=== PATIENT | female | born 1990 | race Caucasian/White ===

== ENCOUNTER → 2017-05-02 16:34 | Outpatient (CLI) | payer MEDICAID, SELFPAY ==
[2017-05-02 17:36] LABS: Glucose Challenge Gest 1H 50g 100 mg/dL (70-140)
[2017-05-02 17:38] LABS: Hematocrit 35.4 % (37-47); Hemoglobin 11.4 g/dl (12.0-15.0); Mean Corp Hgb Conc 32.2 g/gl (32-36); Mean Corpuscular Hgb 29.6 pg (27.0-32.0); Mean Corpuscular Volume 91.9 fL (81-99); Mean Platelet Vol. 9.8 fl (6.2-12.0); Platelet Count 237 K/mm3 (150-450); RBC Distribution Width CV 13.6 % (11.6-14.6); Red Blood Count 3.85 M/mm3 (4.2-5.4); White Blood Count 12.3 K/mm3 (4.4-11.0)
[2017-05-02 17:43] LABS: Scan Indicated on CBC? Y/N NO
== END ==
PROVIDERS: Visit Provider Obstetrics & Gynecology
DX: Z34.83 Encounter for supervision of other normal pregnancy, third trimester (principal)
CPT/HCPCS: 82950; 85027

== ENCOUNTER 2017-06-07 04:30 | Outpatient (CLI) | payer MEDICAID, SELFPAY ==
[2017-06-07 05:14] VITALS: BMI 29.3
[2017-06-07 05:28] LABS: ROM Internal Control Test YES-OK TO RESULT pt. (Internal QC); ROM Patient Test Negative (Negative)
[2017-06-07 05:55] VITALS: BP 116/69; PULSE 81; RESP 16; TEMP 37.3; O2SAT 94
--- NOTE | 2017-06-07 08:30 | OB.TRI.NOTE ---
History of Present Illness Date of Service: 06/07/17 Reason For Visit: R/O LABOR Date of Service: 06/07/17 Final EMRE: 07/17/17 Gestational age: 34 Weeks and 2 Days History of Present Illness: 27 yo female at 24 + wk EGA with h/o all term C section deliveries presents with ? SROM. Relates a small amt of vag dischg yesterday and again in night time. Advised to go in for SROM check, but advised by hx does not sound like SROM Home Medications Medication Instructions Recorded Vits [Prenatabs FA ] 1 tablet PO DAILY 04/26/14 Allergies meperidine HCl [From Demerol] Allergy (Severe, Verified 06/07/17 05:16) Itching latex Allergy (Verified 06/07/17 05:16) Rash swelling, itching strawberry Allergy (Verified 06/07/17 05:16) Rash Physical Exam Vitals: Vital Signs Temp Pulse Resp BP Pulse Ox 99.1 F 81 16 116/69 94 06/07/17 05:55 06/07/17 05:55 06/07/17 05:55 06/07/17 05:55 06/07/17 05:55 NST - FHR Rate Baby A Baseline: 130-140 with accels to 160-170s. Intial presentation p smoking Variability:: Moderate Accelerations:: 15 x 15 Decelerations:: None, Early NST Reactive:: Yes, Appropriate for gestational age FHR Category:: Category I - Presented after smoking on way to hospital. Initial FHT in 170-180s then to reactive NST Uterine Activity:: No UCs noted. Impression/Plan 34 2/7 wk ? SROM FALSE LABOR SROM NEG Reactive NST. Home. Keep next ofc appt as scheduled.
== END 2017-06-07 05:55 | disposition home or self-care (01) ==
LOC: WPOUT 04:55 → WP 04:55
PROVIDERS: Visit Provider Obstetrics & Gynecology
DX: O47.03 False labor before 37 completed weeks of gestation, third trimester (principal); O34.219 Maternal care for unspecified type scar from previous cesarean delivery; O99.333 Smoking (tobacco) complicating pregnancy, third trimester; F17.200 Nicotine dependence, unspecified, uncomplicated; Z3A.34 34 weeks gestation of pregnancy
CPT/HCPCS: 59025; 59050; 84112; 99218; G0378

== ENCOUNTER 2017-07-08 23:35 | Emergency (ER) | payer MEDICAID, SELFPAY ==
[2017-07-08 23:35] VITALS: BP 104/47; PULSE 55; RESP 18; TEMP 37.1; O2SAT 98; BMI 27.3
--- NOTE | 2017-07-08 23:41 | ED.RN ---
PT SENT IN BY DR ARRINGTON FOR IV FLUID HYDRATION. PT STATES SHE IS HAVING LOWER ABD PAIN AND PRESSURE THAT RADIATES TO HIPS. PT STATES DR WAS AWARE AND STATES JUST TO COME TO ER FOR FLUIDS DONT BOTHER GOING TO OB I CALLED DOWN TO [facility] AND SPOKE WITH CHARGE NURSE, TOLD NURSE ABOUT THIS PATIENT AND CONCERNS FOR LOWER ABD PAIN. [facility] STATES TO GIVE PATIENT FLUIDS DIRECTED BY DOCTOR AND SEND TO [facility] IF PAIN PERSISTS AFTER FLUIDS. DR. FELIPE AND DR BAUER AWARE.
--- NOTE | 2017-07-09 00:15 | ED.DCSUM_ITS ---
- ER Visit Summary Date of Service: 07/09/17 Chief Complaint: Nausea vomiting diarrhea, abdominal cramping History of Present Illness: The patient is a 27 F 38 weeks and 4 days presents to the ED after being told by labor and delivery to be checked into the ED. Started having nausea vomiting 6 PM this evening. Total 4 episodes, no hematemesis. 2 episodes of loose stools. No melena. Mild lower abdominal cramping. States noting cramping lower abdomen every 5 minutes prior to arrival. There is no leakage of fluid. No vaginal bleeding. She is followed by Dr. Fernandez. States is a scheduled in 2 days. Tobacco history. Patient currently denies any nausea symptoms. Physical Examination: General: Alert and oriented ?3, no acute distress HEENT: Normocephalic, atraumatic. Moist mucosa membranes Neck: supple, nontender. Cardiovascular: Regular rate and rhythm, no murmurs Respiratory: Normal breath sounds, symmetric, no distress Abdomen: Soft, gravid, mild tenderness lower abdomen. No guarding or rebound Extremities: Nontender, no edema, pulses intact ?4 Neuro: no focal neurological deficits. Test Results: [] Emergency Department Course and Treatment: Patient had IV established by nursing. Fluid started. Vitals stable. With patient's complaint of cramping every 5 minutes, will talk to OB absorption plant operator for discharge to OB unit. 0030: Callback from Dr. Leonidas Dao. Keep IV in, discharged to labor and delivery. Blood work tubes are in the lab for hold in case she needs it. Treatment Plan: [] Disposition: Discharge to labor and delivery Impression: 1. Nausea, vomiting, diarrhea 2. Likely contractions This note was generated with [employer] dictation software. It may contain incorrect words, spelling, and punctuation that were not noted in review of the chart prior to signing ED Disposition - Plan for ED Patient: Disposition: Home or Assisted Living Chief Complaint: Nausea/Vomiting Diagnosis: Vomiting and diarrhea, Labor Contraction Referrals: Care Physician,No Primary [Primary Care Provider] - Additional Instructions: go to labor and delivery.
[2017-07-09] MEDS: 0.9% Normal Saline 1,000 ML 150 ML IV (00:24)
--- NOTE | 2017-07-09 00:48 | ED.RN ---
PT D/C FROM ED AND ESCORTED TO OB VIA WHEELCHAIR AT THIS TIME PER NEW ORDER FROM DR YA.
[2017-07-09 00:50] VITALS: BP 104/47; PULSE 55; RESP 18; O2SAT 98
== END 2017-07-09 00:51 | disposition home or self-care (01) ==
PROVIDERS: Emergency Provider Emergency Medicine
DX: O99.89 Other specified diseases and conditions complicating pregnancy, childbirth and the puerperium (principal); R11.2 Nausea with vomiting, unspecified; R19.7 Diarrhea, unspecified; R10.30 Lower abdominal pain, unspecified; O99.333 Smoking (tobacco) complicating pregnancy, third trimester; F17.200 Nicotine dependence, unspecified, uncomplicated; Z3A.38 38 weeks gestation of pregnancy
CPT/HCPCS: 99281

== ENCOUNTER 2017-07-09 00:42 | Outpatient (CLI) | payer MEDICAID, SELFPAY ==
[2017-07-09 01:10] VITALS: BMI 27.4
[2017-07-09 03:17] LABS: Red Blood Cells-Urine 0 SEEN /hpf (0-5)
[2017-07-09 03:22] LABS: Color, Urine Yellow (Yellow); Glucose, Dipstick Normal (Normal); Leukocyte Esterase-Dipstick 500 /ul (Negative); Nitrite-Dipstick Negative (Negative); Occult Blood-Urine 10 /ul (Negative); Protein-Dipstick 30 mg/dl (Negative); Urine Clarity Sl. Cloudy (Clear); Urine Urobilinogen 1 mg/dl (Normal)
[2017-07-09 03:23] LABS: Ketone-Dipstick 150 mg/dl (Negative); Urine Bilirubin Dipstick 1 mg/dL (Negative)
[2017-07-09 03:27] LABS: Absolute Lymphocyte Count 0.91 X10^3/ul (0.83-4.51); Absolute Neutrophil Count 21.3 X10^3/uL (2.0-7.7); Basophil# 0.04 X10^3/uL; Basophil% 0.2 % (0-1); Eosinophils% 0.4 % (0-5); Hematocrit 39.5 % (37-47); Hemoglobin 13.2 g/dl (12.0-15.0); Lymphocyte # 0.91 X10^3/ul (4.0); Lymphocyte % 3.9 % (19-41); Mean Corp Hgb Conc 33.4 g/gl (32-36); Mean Corpuscular Hgb 30.9 pg (27.0-32.0); Mean Corpuscular Volume 92.5 fL (81-99); Mean Platelet Vol. 11.1 fl (6.2-12.0); Monocyte# 1.05 X10^3/uL; Monocyte% 4.5 % (0-10); Neutrophil # 21.29 X10^3/uL (2.7-7.7); Neutrophil % 90.6 % (47-70); Platelet Count 297 K/mm3 (150-450); RBC Distribution Width CV 14.1 % (11.6-14.6); RBC Distribution Width SD 46.4 fl (35.1-43.9); Red Blood Count 4.27 M/mm3 (4.2-5.4); White Blood Count 23.5 K/mm3 (4.4-11.0)
[2017-07-09 03:29] LABS: Mucous, Urine 1+ /hpf (<or=2+); Squamous Epithelial Cells - UA 5-10 SEEN /hpf (5-10); White Blood Cells 10-25 SEEN /hpf (0-5)
[2017-07-09 03:30] LABS: Bacteria RARE /hpf (None Seen)
[2017-07-09 03:33] LABS: Differential Indicated SCAN CRITERIA MET; POSITIVE COUNT NO; POSITIVE DIFFERENTIAL YES; POSITIVE MORPHOLOGY NO
[2017-07-09 03:39] LABS: ALB/GLOB Ratio 0.8 RATIO (0.9-2.4); AST(SGOT) 16 U/L (15-37); Alanine Aminotransfer ALT/SGPT 16 U/L (13-56); Alkaline Phosphatase 212 U/L (45-117); Anion Gap 13 (5-15); BUN 7 mg/dL (7-18); BUN/Creat Ratio 12.9 RATIO (10-20); Calcium,Total 8.5 mg/dL (8.5-10.1); Chloride 106 mmol/L (98-107); Creatinine, Serum 0.54 mg/dL (0.55-1.02); EST Glomerular Filtration Rate 142 mL/min (>60); Est Glom Filt Rate - Afr Amer 171 mL/min (>60); Glucose 79 mg/dL (74-106); Potassium 3.5 mmol/L (3.5-5.1); Sodium Level 140 mmol/L (136-145)
--- NOTE | 2017-07-09 03:55 | OB.TRI.NOTE ---
History of Present Illness Date of Service: 07/09/17 Was patient seen by the physician?: Yes Reason For Visit: R/O LABOR Final EMRE: 07/17/17 Final EMRE Source: US <20 weeks Gestational age: 39 Weeks and 3 Days History of Present Illness: 27yo @ 38 6/7wga presents with c/o abdominal pain, nausea, vomiting and diarrhea - sent from ED. She began feeling unwell at 6pm yesterday and subsequently had emesis x 2 and diarrhea x 3 - denies hematochezia. Diarrhea was loose and watery. Denies fever, chills, back pain, urinary urgency, dysuria. No sick contacts. She was brought in to ER by her . Denies worsening of abdominal pain with ride. Pain is intermittent and c/w contraction pain. +FM, no leaking of fluid or vaginal bleeding. She is scheduled for a repeat C/S tomorrow. Home Medications Medication Instructions Recorded Vits [Prenatabs FA ] 1 tablet PO DAILY 04/26/14 Docusate Sodium [Colace] 100 mg PO BID PRN #30 cap 07/10/17 Naproxen [Naprosyn] 250 - 500 mg PO TID PRN #30 tab 07/10/17 Oxycodone [Oxyir] 5 - 10 mg PO Q6H PRN PRN 7 Days 07/10/17 #28 tablet Allergies meperidine HCl [From Demerol] Allergy (Severe, Verified 07/09/17 01:11) Itching latex Allergy (Verified 07/09/17 01:11) Rash swelling, itching strawberry Allergy (Verified 07/09/17 01:11) Rash - Pertinent Past Medical History Pertinent Past Medical History: Past Medical History: Denies Past Surgical History: section x 3 - in 2007, 2009 and 2014 Dilation and curettage for SAB LEEP Cervical fusion Social History: , smokes 5 cigarettes a day, denies alcohol or illicit drug use Physical Exam Vitals: avss General: Alert, Oriented x3, Cooperative, No apparent distress Cardiovascular: Regular rate, Regular Rhythm, Normal S1, Normal S2 Lungs: Clear to auscultation, Normal air movement, No rhonchi, No wheeze, No rales Abdomen: Soft, Non-Distended, Gravid, - - Abdomen tender, no rebound or guarding - no fundal tenderness; NO CVA tenderness Extremities:: No edema Estimated gestational size: Appropriate for gestational size Presentation: Cephalic Cervix Dilation (cm): 1 Station: -3 Effacement (%): 50 NST - FHR Rate Baby A Baseline: 140 Variability:: Moderate Accelerations:: 15 x 15 Decelerations:: None NST Reactive:: Yes FHR Category:: Category I Uterine Activity:: 2/10 Impression/Plan Labs reviewed, significant for leukocytosis and suggest infection - Dx gastroenteritis -Will observe overnight and hydrate further -Repeat abdominal exam to monitor tenderness -No evidence of active labor
[2017-07-09] MEDS: Dextrose 5%/0.9% NaCl 1,000 ML 200 ML IV (04:27)
--- NOTE | 2017-07-09 10:47 | PCM.PN.BLA ---
Progress Note Entry for 07/09/17 at approximately 0830h Patient relates abdominal pain resolved. Has two additional episodes of loose stool, but no further vomiting. AVSS, abdomen is soft, nontender. FHR Cat I and contractions resolved. Will d/c home. PO hydration advised. Like has 24 hour infection. Reviewed si/sx of worsening. Return for scheduled section tomorrow if sx resolved.
== END 2017-07-09 08:50 | disposition home or self-care (01) ==
LOC: WPOUT 01:06 → WP 01:06
PROVIDERS: Visit Provider Obstetrics & Gynecology
DX: O99.89 Other specified diseases and conditions complicating pregnancy, childbirth and the puerperium (principal); R10.9 Unspecified abdominal pain; R11.2 Nausea with vomiting, unspecified; R19.7 Diarrhea, unspecified; O99.333 Smoking (tobacco) complicating pregnancy, third trimester; F17.200 Nicotine dependence, unspecified, uncomplicated; Z3A.38 38 weeks gestation of pregnancy
CPT/HCPCS: 59025; 59050; 80053; 81001; 85025; 87086; 87088; 99218; G0378

== ENCOUNTER 2017-07-10 05:30 | Inpatient (IN) | payer MEDICAID, SELFPAY ==
[2017-07-04 09:46] VITALS: BMI 27.8
[2017-07-10] VITALS (25 sets, daily range): BP systolic 77–136; BP diastolic 46–74; PULSE 71–101; RESP 12–18; TEMP 36.1–37.3; O2SAT 95–100; BMI 27.3
[2017-07-10] MEDS: Lactated Ringers 1,000 ML 999 ML IV (06:15)
[2017-07-10 06:39] LABS: Absolute Lymphocyte Count 1.93 X10^3/ul (0.83-4.51); Absolute Neutrophil Count 8.2 X10^3/uL (2.0-7.7); Basophil# 0.01 X10^3/uL; Basophil% 0.1 % (0-1); Eosinophil# 0.18 X10^3/uL; Eosinophils% 1.5 % (0-5); Hematocrit 35.8 % (37-47); Hemoglobin 11.6 g/dl (12.0-15.0); Lymphocyte # 1.93 X10^3/ul (4.0); Lymphocyte % 16.4 % (19-41); Mean Corp Hgb Conc 32.4 g/gl (32-36); Mean Corpuscular Hgb 30.1 pg (27.0-32.0); Mean Corpuscular Volume 92.7 fL (81-99); Mean Platelet Vol. 10.5 fl (6.2-12.0); Monocyte# 1.35 X10^3/uL; Monocyte% 11.5 % (0-10); Neutrophil # 8.22 X10^3/uL (2.7-7.7); Platelet Count 287 K/mm3 (150-450); RBC Distribution Width CV 14.5 % (11.6-14.6); RBC Distribution Width SD 48.5 fl (35.1-43.9); Red Blood Count 3.86 M/mm3 (4.2-5.4); White Blood Count 11.8 K/mm3 (4.4-11.0)
[2017-07-10 06:43] LABS: International Normalized Ratio 1.1; Prothrombin Time (Protime)PT. 13.9 SECONDS (11.7-14.9)
[2017-07-10 06:44] LABS: Partial Thromboplast Time 30.4 Seconds (24.1-36.2)
[2017-07-10 07:01] LABS: POSITIVE COUNT NO; POSITIVE DIFFERENTIAL NO; POSITIVE MORPHOLOGY NO
[2017-07-10] MEDS: Sodium Citrate/Citric Acid 30 ML UDC PO (07:08)
[2017-07-10] MEDS: Lactated Ringers 1,000 ML 150 ML IV (07:09)
--- NOTE | 2017-07-10 07:15 | PCM.DCCSEC ---
Discharge Diet: No Restrictions Discharge Activity: May not drive while taking narcotic pain medications., May Shower, May Take a Tub Bath May resume sexual activity in: 4-6 weeks Lifting Restrictions: 20 pounds Additional Activity Instructions:: Nothing in the vagina for 4-6 weeks. You may return to work/school in 6 weeks. Change Dressing in (Days):: 4 Remove Dressing in (days):: 4 Cleanse incision/area with: Soap & Water, Keep Dressing Clean & Dry Additional Instructions: If you experience any of the following, contact your healthcare provider. Bleeding that soaks a pad every hour for 2 hours Fever 100.4 or higher Unrelieved incision or abdominal pain Swelling, redness, discharge or bleeding from your incision Problems urinating (including inability to urinate or burning while urinating). Visual changes Severe headache Flu-like symptoms Pain or redness in one of both of your breasts Pain, warmth, tenderness or swelling in your legs, especially the calf area Frequent nausea and vomiting Symptoms of depression or anxiety If you experience any of the following, call 911 or go to the nearest Emergency Room. Chest pain Problems breathing Seizure activity Partial or complete paralysis of a body part, slurred speech, weakness or drooping of the face, or a sudden inability to walk or hold your balance Allergies/Adverse Reactions: Allergies meperidine HCl [From Demerol] Allergy (Severe, Verified 07/09/17 01:11) Itching latex Allergy (Verified 07/09/17 01:11) Rash swelling, itching strawberry Allergy (Verified 07/09/17 01:11) Rash Medications to take at Discharge Vits [Prenatabs FA ] 1 tablet PO DAILY 04/26/14 Docusate Sodium [Colace] 100 mg PO BID PRN #30 cap 07/10/17 Naproxen [Naprosyn] 250 - 500 mg PO TID PRN #30 tab 07/10/17 Oxycodone [Oxyir] 5 - 10 mg PO Q6H PRN PRN 7 Days #28 tablet 07/10/17 The following prescriptions were given: Oxycodone [Oxyir] 5 - 10 mg PO Q6H PRN PRN 7 Days #28 tablet PRN Reason: Mod-Severe Pain () Docusate Sodium [Colace] 100 mg PO BID PRN #30 cap PRN Reason: Constipation Naproxen [Naprosyn] 250 - 500 mg PO TID PRN #30 tab PRN Reason: Mild-Mod Pain (-08/10) Follow-Up: Call to make an appointment with your doctor for an incision check in 1-2 weeks. You will also need a 6 week post- follow up appointment. Please Follow Up With: Lissette Fernandez MD - [phone] When: Call to make an appointment for an incision check in 2 weeks. Primary Care Physician: Care Physician,No Primary [Primary Care Provider] -
--- NOTE | 2017-07-10 07:19 | DCINST_ITS ---
Discharge Diet: No Restrictions Discharge Activity: May not drive while taking narcotic pain medications., May Shower, May Take a Tub Bath May resume sexual activity in: 4-6 weeks Lifting Restrictions: 20 pounds Additional Activity Instructions:: Nothing in the vagina for 4-6 weeks. You may return to work/school in 6 weeks. Change Dressing in (Days):: 4 Remove Dressing in (days):: 4 Cleanse incision/area with: Soap & Water, Keep Dressing Clean & Dry Additional Instructions: If you experience any of the following, contact your healthcare provider. * Bleeding that soaks a pad every hour for 2 hours * Fever 100.4 or higher * Unrelieved incision or abdominal pain * Swelling, redness, discharge or bleeding from your incision * Problems urinating (including inability to urinate or burning while urinating) . * Visual changes * Severe headache * Flu-like symptoms * Pain or redness in one of both of your breasts * Pain, warmth, tenderness or swelling in your legs, especially the calf area * Frequent nausea and vomiting * Symptoms of depression or anxiety If you experience any of the following, call 911 or go to the nearest Emergency Room. * Chest pain * Problems breathing * Seizure activity * Partial or complete paralysis of a body part, slurred speech, weakness or drooping of the face, or a sudden inability to walk or hold your balance Allergies/Adverse Reactions: Allergies meperidine HCl [From Demerol] Allergy (Severe, Verified 07/09/17 01:11) Itching latex Allergy (Verified 07/09/17 01:11) Rash swelling, itching strawberry Allergy (Verified 07/09/17 01:11) Rash Medications to take at Discharge Vits [Prenatabs FA ] 1 tablet PO DAILY 04/26/14 Docusate Sodium [Colace] 100 mg PO BID PRN #30 cap 07/10/17 Naproxen [Naprosyn] 250 - 500 mg PO TID PRN #30 tab 07/10/17 Oxycodone [Oxyir] 5 - 10 mg PO Q6H PRN PRN 7 Days #28 tablet 07/10/17 The following prescriptions were given: Oxycodone [Oxyir] 5 - 10 mg PO Q6H PRN PRN 7 Days #28 tablet PRN Reason: Mod-Severe Pain (-01/10) Docusate Sodium [Colace] 100 mg PO BID PRN #30 cap PRN Reason: Constipation Naproxen [Naprosyn] 250 - 500 mg PO TID PRN #30 tab PRN Reason: Mild-Mod Pain (-08/10) Follow-Up: Call to make an appointment with your doctor for an incision check in 1-2 weeks. You will also need a 6 week post- follow up appointment. Please Follow Up With: Lissette Fernandez MD - [phone] When: Call to make an appointment for an incision check in 2 weeks. Primary Care Physician: Care Physician,No Primary [Primary Care Provider] -
[2017-07-10] MEDS: Cefazolin 2 GM in 0.9% Normal Saline 100 ML IV (07:38)
[2017-07-10] MEDS: Oxytocin 30 units/NS 500 ml 30 UNITS/500 ML IV.SOLN 167 UNITS IV (07:47)
[2017-07-10] MEDS: Lactated Ringers 1,000 ML 100 ML IV ×2 (08:30→10:55)
--- NOTE | 2017-07-10 08:49 | OP.PCM_ITS ---
Operative Report Date of Procedure: 07/10/17 PROCEDURE: Repeat C section. Bilateral partial salpingectomy Preoperative diagnosis: 39 wk EGA Prior C section, planned repeat C section Sterilization request. Postop diagnosis: 39 wk EGA Prior C section, planned repeat C section Sterilization request. Anesthesia: Spinal, Marleni Wisdom MD Surgeon: Lissette Fernandez MD Spring Upholsterer: SANDY Francis EBL 600 cc Complications: none Drains: Wu draining clear yellow urine Fluids: replacement LR Findings: At amniotomy, clear fluid was noted. Grande viable female in vertex presentation. Apgars 9/9, Baby weight: 7# 9 oz There was a normal appearing uterus, fallopian tubes and ovaries bilaterally. There were filmy adhesions between the bladder and lower uterine segment. There was a very thin window at the lower uterine segment to the right side of the uterus. PATH: Routine cord blood for typing collected. Bilateral fallopian tube segments. Narrative account: After the risks, benefits and alternatives of the procedure were reviewed with the patient, informed consent was obtained. The patient was taken to the Operating room with an IV running, and placed in a seated position on the operating table for placement of the spinal. Once the spinal had been administered, she was briefly frog-legged for Wu catheter placement, and then repositioned to dorsal supine position with leftward displacement of the uterus, and prepped and draped in the usual sterile fashion. Once the spinal was deemed adequate, a Pfannenstiel skin incision was created using the knife ( through the prior skin incision scar). The incision was carried down to the rectus fascia using the knife. The fascia was nicked in the midline. The fascial incision was extended bilaterally using curved Huber scissors. The superior aspect of the fascial incision was grasped with Vickie clamps and tented up and the underlying rectus abdominal muscles were dissected free using blunt and sharp dissection and Bovie cautery (dense adhesions at this layer). In a similar manner, the inferior aspect of the facial incision was grasped with Vickie clamps tented up and the underlying rectus abdominal muscles were dissected free. The rectus abdominis muscles were tented up in the midline and a Huber scissors was used to enter the peritoneum by sharp dissection. The rectus abdominis muscles were then in the midline using Huber scissors . The peritoneum was stretched laterally and a bladder blade was inserted. A bladder flap was created along the lower uterine segment with Metzenbaum scissors . A window was noted at the prior uterine incision to the right side of the incision. The uterine incision was then created using Metzenbaum scissors. The operators fingertips were used to extend the uterine incision by blunt dissection in a caudad- cephalad orientation . Clear fluid was noted at amniotomy. The vertex was then delivered atraumatically through the incision. The OP and nares were bulb suctioned on the abdomen. The shoulders delivered easily . The cord clamped x two and cut. And the was handed off to the nurse awaiting delivery after briefly showing her to her parents. The baby had a spontaneous, vigorous cry. The placenta was then delivered. The uterus was exteriorized and cleared of clots and debris . The uterine incision was repaired with 1 Vicryl in a running locked fashion. Excellent hemostasis was noted. The R fallopian tube was grasped at the distal fibrated end ...the fallopian tube was otherwise adherent to the ovary. The fimbriated end was doubly ligated with 2-0 catgut and then excised with Huber scissors and the stump was Bovie cauterized for hemostasis. The R fimbriated end was set aside for later pathology review. The L fallopian tube was then tented up with Morrison clamp and a relatively avascular segment was selected for the bilateral partial salpingectomy. A defect was created in the mesosalpinx using Bovie cautery. The proximal and distal ends of the fallopian tube at the mesosalpinx window were then free tied with 2-0 Catgut. A knuckle of the tube was then tied off inferior to the ties. A segment of the L fallopian tube was then excised using Metzenbaum scissors. The tubal segment was set aside for later pathology review. Bovie cautery was used for hemostasis at the remaining stumps. Excellent hemostasis was noted at both tubal segments. At this point the uterus, fallopian tubes and ovaries were returned to the abdominal cavity. The gutters were cleared of clots and debris and the uterine incision inspected. Excellent hemostasis was noted. The peritoneal edges and rectus abdominis muscles were reapproximated in the midline using vertical mattress stitches and figure of eight stitches of 1 Vicryl . Excellent hemostasis was noted at the subfascial space The fascia was closed in a running nonlocked fashion with running nonlocked 1 Vicryl. The Subcutaneous fatty tissue was Bovie cauterized as needed for hemostasis. This layer was then reapproximated with a single layer of running 3-0 Vicryl to eliminate space. The skin edges were closed in a Subcuticular stitch of 4-0 Vicryl. The incision was cleansed. Cavilon, Steristrips, and a Mepilex dressing were applied to the skin . The patient was then transferred to the recovery room bed in stable condition after tolerating the procedure well. Sponge, lap, needle and instrument counts correct times two. Medications given preop and intraoperatively included: Ancef 2 gm given managed services sales consultant to the operating room. The patient also received Pitocin given IV after cord clamp, and Toradol 30 mg IV times one. For a complete listing of medications given preop and intraoperatively, please see the anesthesia record.
--- NOTE | 2017-07-10 09:24 | FALS_PTH ---
PATIENT: MARCELL BABCOCK LOC: [facility] U#:[id number] AGE/SX: 27/F ROOM: [facility]006 RE07/10/[address]: Dr. Lissette Fernandez MD : 1990 BED: 1 DIS: 07/12/2017 SPEC #: [id number] RECD: 07/10/17 09:36 STATUS: DESTINEE DOMENIAC #: [id number] ANETTE: 07/10/17 09:[address]: Lissette Fernandez DEPT: SURGICAL PATHOLOGY RECD BY: Mal Fan ENTERED: 07/10/17 09:36 SP TYPE: FALL TUBES OTHR DR: No Primary Care Phys Tissues: Fallopian tube Procedures: Surgery Specimen Level II HEADER OPERATION: Tubal ligation PRE-OP DIAGNOSIS: Tubal ligation TISSUE SUBMITTED: Fallopian tube MICROSCOPIC DIAGNOSIS Right fallopian tube, salpingectomy: Complete segment of fallopian tube with no pathologic change. Left fallopian tube, salpingectomy: Complete segment of fallopian tube with no pathologic change. AM:sherie 07/11/17 MICROSCOPIC DESCRIPTION Slides are reviewed. GROSS DESCRIPTION Received in fixative is one container labeled with the patient's name and designated right with tube. The specimen consists of two tubular pieces of nieto soft tissue. The right tube is identified by a suture. The right tube measures 3 cm in length and 1 cm in diameter. The fimbrial end is identified. The left tube measures 2 cm in length and 0.5 cm in diameter. The entire specimen is submitted in two cassettes as follows: 1 - right tube, 2 - left tube. Both pieces will be sectioned at the time of embedding. / CHARLI:sherie 07/10/17 TC:5 CPT: 71278 x2
[2017-07-10] MEDS: Ketorolac 30 MG/ML Syringe IV ×2 (12:58→18:26)
[2017-07-10] MEDS: DiphenhydrAMINE 25 MG Capsule PO ×2 (16:48→23:32)
[2017-07-10] MEDS: 0.9% Saline Lock 10 ML Syringe IV (19:36)
[2017-07-10] MEDS: Acetaminophen 500 MG Tablet 1000 MG PO (19:43)
[2017-07-11] VITALS (7 sets, daily range): BP systolic 95–117; BP diastolic 46–62; PULSE 65–88; RESP 12–18; TEMP 36.6–37.1; O2SAT 96–100
[2017-07-11] MEDS: 0.9% Saline Lock 10 ML Syringe IV (00:53)
--- NOTE | 2017-07-11 01:01 | NURSING ---
0100 dose of IV toradol not given. IV site infiltrated with saline flush. RN discussed restarting IV for scheduled toradol. pt declined and wants to start PO pain medications.
[2017-07-11] MEDS: Naproxen 250 MG Tablet PO ×3 (01:10→23:56)
[2017-07-11] MEDS: oxyCODONE 5 MG Tablet PO ×4 (04:19→20:13)
[2017-07-11 05:04] LABS: Hematocrit 32.3 % (37-47); Hemoglobin 10.6 g/dl (12.0-15.0); Mean Corp Hgb Conc 32.8 g/gl (32-36); Mean Corpuscular Hgb 30.2 pg (27.0-32.0); Mean Platelet Vol. 10.5 fl (6.2-12.0); Platelet Count 248 K/mm3 (150-450); RBC Distribution Width CV 14.2 % (11.6-14.6); RBC Distribution Width SD 47.5 fl (35.1-43.9); Red Blood Count 3.51 M/mm3 (4.2-5.4); White Blood Count 21.9 K/mm3 (4.4-11.0)
[2017-07-11 05:05] LABS: Scan Indicated on CBC? Y/N NO
[2017-07-11] MEDS: Acetaminophen 500 MG Tablet 1000 MG PO ×2 (05:40→22:39)
--- NOTE | 2017-07-11 07:40 | PCM.PN.OB ---
Subjective: POD#1 Repeat C/S and BPS Doing well. no concerns voiced. Mentions some cramping with nursing and also passed a clot earlier this am. No heavy bleeding otherwise. Pain control adequate. IV S/L removed in middle of night as infiltrated, would not flush. Denies any URI. has dry cough and very thirsty. Nursing ok. - Physical Exam General: Oriented x3, Cooperative - resting, rouses to voice. HEENT: Atraumatic, PERRLA Neck: Supple Abdomen: Soft - softly distended and tympanitic. Fundus firm and minimally tender c/w postop status at 1-2 cm inferior to umbilicus Skin: Incision - Mepilex intact, with two small spots of old shadow outlined in ink w/o extension. Psych/Mental Status: Normal Affect Vital Signs Temp Pulse Resp BP Pulse Ox 98.8 F 84 16 104/46 L 98 07/11/17 04:06 07/11/17 04:36 07/11/17 04:36 07/11/17 04:06 07/11/17 04:36 Oxygen Delivery Method Room Air Weight: 69.853 kg Body Mass Index (BMI) 27.3 Intake and Output for Last 24 Hours 07/09/17 07/10/17 07/11/17 23:59 23:59 23:59 Intake Total 7124 / 7124 1000 / 1000 Output Total 3250 / 3250 3150 / 3150 Balance 3874 / 3874 -2150 / -2150 Laboratory Tests Past 24 Hrs 07/10/17 07/10/17 07/10/17 06:18 08:08 08:13 WBC RBC Hgb Hct MCV MCH MCHC RDW RDW Differential Plt Count MPV Specimen Type Cancelled Cancelled Sample Site Cancelled Cancelled O2 % Cancelled Cancelled Cord ABG pH Cancelled Cord ABG pCO2 Cancelled Cord ABG pO2 Cancelled Cord ABG HCO3 Cancelled Cord ABG Total CO2 Cancelled Cord ABG Base Excess Cancelled Cord ABG O2 Sat Cancelled Cord VBG pH Cancelled Cord VBG pCO2 Cancelled Cord VBG pO2 Cancelled Cord VBG Base Excess Cancelled Respiration Rate Cancelled Cancelled O2 Delivery Device Cancelled Cancelled Liter Flow Cancelled Minute Volume Cancelled Vent Mode Cancelled Tidal Volume Cancelled POC PEEP Cancelled Cancelled POC Pressure Suppt Cancelled Cancelled Pressure High Cancelled Cancelled Pressure Low Cancelled Cancelled Time High Cancelled Cancelled Time Low Cancelled Cancelled EPAP Cancelled Cancelled IPAP Cancelled Cancelled Blood Gas Notified Whom Cancelled Cancelled Blood Gas Notified Time Cancelled Cancelled Blood Type A POSITIVE Antibody Screen NEGATIVE 07/11/17 04:36 WBC 21.9 H RBC 3.51 L Hgb 10.6 L Hct 32.3 L MCV 92.0 MCH 30.2 MCHC 32.8 RDW 14.2 RDW Differential 47.5 H Plt Count 248 MPV 10.5 Specimen Type Sample Site O2 % Cord ABG pH Cord ABG pCO2 Cord ABG pO2 Cord ABG HCO3 Cord ABG Total CO2 Cord ABG Base Excess Cord ABG O2 Sat Cord VBG pH Cord VBG pCO2 Cord VBG pO2 Cord VBG Base Excess Respiration Rate O2 Delivery Device Liter Flow Minute Volume Vent Mode Tidal Volume POC PEEP POC Pressure Suppt Pressure High Pressure Low Time High Time Low EPAP IPAP Blood Gas Notified Whom Blood Gas Notified Time Blood Type Antibody Screen Medical Necessity - Tobacco Use Smoking Status: Current every day smoker Assessment/Plan POD#1 Repeat C/S and BPS Stable postop PO meds initiated. Inc diet and activity as tolerated. Wu out and voiding well. Leukocytosis. Pt remains afeb. Suspect reactive , but will watch temps . Repeat CBC on POD#2 Continue care.
--- NOTE | 2017-07-11 16:00 | NURSING ---
Reviewed and agreed with Student RN charting.
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
[2017-07-11] MEDS: Senna/Docusate Sodium 1 Tablet PO (16:22)
[2017-07-12] MEDS: oxyCODONE 5 MG Tablet PO (02:02)
[2017-07-12 02:45] VITALS: BP 110/61; PULSE 66; RESP 18; TEMP 36.6; O2SAT 95
--- NOTE | 2017-07-12 06:46 | NURSING ---
This RN agrees with all Andreas SN charting
[2017-07-12 06:50] LABS: Hematocrit 31.2 % (37-47); Hemoglobin 10.3 g/dl (12.0-15.0); Mean Corpuscular Hgb 30.6 pg (27.0-32.0); Mean Corpuscular Volume 92.6 fL (81-99); Mean Platelet Vol. 10.2 fl (6.2-12.0); Platelet Count 282 K/mm3 (150-450); RBC Distribution Width CV 14.4 % (11.6-14.6); RBC Distribution Width SD 48.4 fl (35.1-43.9); Red Blood Count 3.37 M/mm3 (4.2-5.4); White Blood Count 14.9 K/mm3 (4.4-11.0)
[2017-07-12 06:51] LABS: Scan Indicated on CBC? Y/N NO
[2017-07-12 07:17] VITALS: BP 93/61; PULSE 74; RESP 16; TEMP 36.2; O2SAT 95
--- NOTE | 2017-07-12 07:33 | PCM.PN.OB ---
Subjective: POD#2 Repeat C/S and BPS Doing well and would like to go home later today. No concerns voiced. Pain control adequate. + flatus. tolerating diet well. Objective: Lying in bed for nursing assessment. - Physical Exam General: Alert, Oriented x3, Cooperative, No apparent distress HEENT: Atraumatic Neck: Supple Abdomen: Soft - Less distended and tympanitic today. Skin: Incision - Mepilex CDI. MInimal spots of marked old dischg, each under 1 cm. Neurological: Cranial nerves II-XII grossly intact Psych/Mental Status: Normal Affect Vital Signs Temp Pulse Resp BP Pulse Ox 97.2 F L 74 16 93/61 95 /02/18 07:17 07/12/17 07:17 07/12/17 07:17 07/12/17 07:17 07/12/17 07:17 Oxygen Delivery Method Room Air Weight: 69.853 kg Body Mass Index (BMI) 27.3 Intake and Output for Last 24 Hours 04//18 18 07/12/17 23:59 23:59 23:59 Intake Total 7124 / 7124 1000 / 1000 Output Total 3250 / 3250 3150 / 3150 Balance 3874 / 3874 -2150 / -2150 Laboratory Tests Past 24 Hrs //18 06:05 WBC 14.9 H RBC 3.37 L Hgb 10.3 L Hct 31.2 L MCV 92.6 MCH 30.6 MCHC 33.0 RDW 14.4 RDW Differential 48.4 H Plt Count 282 MPV 10.2 Medical Necessity - Tobacco Use Smoking Status: Current every day smoker Assessment/Plan POD#2 Repeat C/S and BPS Stable postop Leukocytosis. resolving. Dischg home today. RTO in 2 wk for postop incision check as planned. reviewed removal of bandage by 3-4 d postop.
--- NOTE | 2017-07-12 07:37 | PCM.DC.SUM ---
Discharge Date and Diagnosis Date of Admission: 07/10/17 - 39 wk EGA. repeat C/S and BPS Date of Discharge: 07/12/17 - same - Secondary Discharge Diagnosis Chronic Problems (Last Reviewed 07/09/17 @ 08:33 by Susana Bob MD) Palpitations (Chronic) Dizziness (Chronic) Pectus excavatum (Chronic) Hospital Course and Treatment Operations: - - repeat C/S and BPS Summary of Care Provided: The patient is a 27 year old female at 39 wk EGA with h/o prior C/S deliveries, presented for repeat C/S and BPS. Procedure performed 07/10/17, uncomplicated. Grande viable female with Ap 8/9 7# 9 oz. Normal uterus, ovaries B. R fallopian tube with adhesions to ovary but fimbria free and excised along with midportion of L fallopian tube. reactive leukocytosis noted on CBC POD#1 which is resolving by POD#2 Pt request: dischg to home on POD#2 Routine dischg instructions given and f/u planned in 2 wk in ofc. Discharge Diet: No Restrictions Discharge Activity: May not drive while taking narcotic pain medications., May Shower, May Take a Tub Bath May resume sexual activity in: 4-6 weeks Additional Activity Instructions:: Nothing in the vagina for 4-6 weeks. You may return to work/school in 6 weeks. Change Dressing in (Days):: 4 Remove Dressing in (days):: 4 Cleanse incision/area with: Soap & Water, Keep Dressing Clean & Dry Home Medications: Medications to take at Discharge Vits [Prenatabs FA ] 1 tablet PO DAILY 04/26/14 Docusate Sodium [Colace] 100 mg PO BID PRN #30 cap 07/10/17 Naproxen [Naprosyn] 250 - 500 mg PO TID PRN #30 tab 07/10/17 Oxycodone [Oxyir] 5 - 10 mg PO Q6H PRN PRN 7 Days #28 tablet 07/10/17 Following Prescrptions Were Given to Patient: Oxycodone [Oxyir] 5 - 10 mg PO Q6H PRN PRN 7 Days #28 tablet PRN Reason: Mod-Severe Pain (4-10/10) Docusate Sodium [Colace] 100 mg PO BID PRN #30 cap PRN Reason: Constipation Naproxen [Naprosyn] 250 - 500 mg PO TID PRN #30 tab PRN Reason: Mild-Mod Pain (1-5) Other Amb Orders: Electric breast pump Time Frame: 1 Year, Location: None Selected Primary Care Physician: Care Physician,No Primary [Primary Care Provider] - Please Follow Up With: Lissette Fernandez MD - [phone] When: Call to make an appointment for an incision check in 2 weeks. Medical Necessity - Tobacco Use Smoking Status: Current every day smoker Meaningful Use Info Meaningful Use Diagnoses (Choose all that apply): None applicable
--- NOTE | 2017-07-12 07:41 | DS.PCM_ITS ---
Discharge Date and Diagnosis Date of Admission: 07/10/17 - 39 wk EGA. repeat C/S and BPS Date of Discharge: 07/12/17 - same - Secondary Discharge Diagnosis Chronic Problems (Last Reviewed 07/09/17 @ 08:33 by Susana Bob MD) Palpitations (Chronic) Dizziness (Chronic) Pectus excavatum (Chronic) Hospital Course and Treatment Operations: - - repeat C/S and BPS Summary of Care Provided: The patient is a 27 year old female at 39 wk EGA with h/o prior C/S deliveries , presented for repeat C/S and BPS. Procedure performed 07/10/17, uncomplicated. Grande viable female with Ap 8/9 7# 9 oz. Normal uterus, ovaries B. R fallopian tube with adhesions to ovary but fimbria free and excised along with midportion of L fallopian tube. reactive leukocytosis noted on CBC POD#1 which is resolving by POD#2 Pt request: dischg to home on POD#2 Routine dischg instructions given and f/ u planned in 2 wk in ofc. Discharge Diet: No Restrictions Discharge Activity: May not drive while taking narcotic pain medications., May Shower, May Take a Tub Bath May resume sexual activity in: 4-6 weeks Additional Activity Instructions:: Nothing in the vagina for 4-6 weeks. You may return to work/school in 6 weeks. Change Dressing in (Days):: 4 Remove Dressing in (days):: 4 Cleanse incision/area with: Soap & Water, Keep Dressing Clean & Dry Home Medications: Medications to take at Discharge Vits [Prenatabs FA ] 1 tablet PO DAILY 04/26/14 Docusate Sodium [Colace] 100 mg PO BID PRN #30 cap 07/10/17 Naproxen [Naprosyn] 250 - 500 mg PO TID PRN #30 tab 07/10/17 Oxycodone [Oxyir] 5 - 10 mg PO Q6H PRN PRN 7 Days #28 tablet 07/10/17 Following Prescrptions Were Given to Patient: Oxycodone [Oxyir] 5 - 10 mg PO Q6H PRN PRN 7 Days #28 tablet PRN Reason: Mod-Severe Pain (4-10/10) Docusate Sodium [Colace] 100 mg PO BID PRN #30 cap PRN Reason: Constipation Naproxen [Naprosyn] 250 - 500 mg PO TID PRN #30 tab PRN Reason: Mild-Mod Pain (1-5) Other Amb Orders: Electric breast pump Time Frame: 1 Year, Location: None Selected Primary Care Physician: Care Physician,No Primary [Primary Care Provider] - Please Follow Up With: Lissette Fernandez MD - [phone] When: Call to make an appointment for an incision check in 2 weeks. Medical Necessity - Tobacco Use Smoking Status: Current every day smoker Meaningful Use Info Meaningful Use Diagnoses (Choose all that apply): None applicable
[2017-07-12] MEDS: Naproxen 250 MG Tablet PO (08:06)
[2017-07-12 10:16] LABS: Pathology Specimen OB SEE PATHOLOGY REPORT
[2017-07-12] MEDS: Senna/Docusate Sodium 1 Tablet PO (10:18)
[2017-07-12] MEDS: Acetaminophen 500 MG Tablet 1000 MG PO (10:18)
[2017-07-12 11:40] VITALS: BP 129/83; PULSE 84; RESP 18; TEMP 36.3; O2SAT 97
[2017-07-12 15:51] LABS: Pathology Specimen OB SEE PATHOLOGY REPORT
== END 2017-07-12 11:40 | disposition home or self-care (01) | DRG 371 ==
PROVIDERS: Admitting Provider Obstetrics & Gynecology; Visit Provider Obstetrics & Gynecology
DX: O34.211 Maternal care for low transverse scar from previous cesarean delivery (principal); Z37.0 Single live birth; Z30.2 Encounter for sterilization; O99.334 Smoking (tobacco) complicating childbirth; F17.210 Nicotine dependence, cigarettes, uncomplicated; Z3A.39 39 weeks gestation of pregnancy; D72.829 Elevated white blood cell count, unspecified; O99.12 Other diseases of the blood and blood-forming organs and certain disorders involving the immune mechanism complicating childbirth; Q67.6 Pectus excavatum; O99.89 Other specified diseases and conditions complicating pregnancy, childbirth and the puerperium; R11.2 Nausea with vomiting, unspecified; R19.7 Diarrhea, unspecified; R10.30 Lower abdominal pain, unspecified
CPT/HCPCS: 59025; 59050; 80053; 81001; 85025; 85027; 85610; 85730; 86850; 86900; 87086; 87088; 88302; 94762; 99218; 99281; J7120; A4216; G0378; J2405

== ENCOUNTER → 2018-01-30 14:28 | Outpatient (CLI) | payer MEDICAID, SELFPAY ==
[2018-01-30 15:45] LABS: Hematocrit 42.1 % (37-47); Hemoglobin 13.8 g/dl (12.0-15.0); Mean Corp Hgb Conc 32.8 g/gl (32-36); Mean Corpuscular Hgb 30.6 pg (27.0-32.0); Mean Corpuscular Volume 93.3 fL (81-99); Mean Platelet Vol. 9.6 fl (6.2-12.0); Platelet Count 336 K/mm3 (150-450); RBC Distribution Width CV 13.9 % (11.6-14.6); RBC Distribution Width SD 46.5 fl (35.1-43.9); Red Blood Count 4.51 M/mm3 (4.2-5.4); White Blood Count 8.2 K/mm3 (4.4-11.0)
[2018-01-30 15:46] LABS: Scan Indicated on CBC? Y/N NO
[2018-01-30 16:06] LABS: hCG Titer Quant., Serum < 1 mIU/mL (<9 non-preg)
[2018-01-30 18:47] LABS: Chlamydia Trachomatis by PCR Negative (Negative); Neisserai gonorrhoeae by PCR Negative (Negative); Probe Check PASS; Sample Adequacy Control PASS; Specimen Processing Control PASS
[2018-01-30 20:27] LABS: Thyroid Stim Hormone (TSH) 0.42 uIU/mL (0.358-3.74)
== END ==
PROVIDERS: Visit Provider Obstetrics & Gynecology
DX: N92.6 Irregular menstruation, unspecified (principal)
CPT/HCPCS: 36415; 84443; 84702; 85027; 87491; 87591

== ENCOUNTER 2018-06-05 01:15 | Emergency (ER) | payer SELFPAY ==
[2018-06-05 01:18] VITALS: BP 112/61; PULSE 72; RESP 15; TEMP 37.1; O2SAT 97; BMI 22.6
--- NOTE | 2018-06-05 01:40 | ED.VIS.GEN ---
History of Present Illness Chief Complaint: Complaint Detail of Chief Complaint: hematuria Informant: Patient Onset: Hours - several Context: Sudden Onset Timing: Continuous Quality: bloody urine w/ clots Location: urethral Current Severity: Moderate Maximum Severity: Moderate Worsened by: urinating Relieved by: nothing Associated Symptoms: dysuria, frequency, urgency Narrative: Feels like she still needs to urinate, but so far has been able to urinate although she is having blood clots. No abdominal discomfort, back discomfort, nausea, vomiting, fevers. Has had urinary tract infections in the past but not for a long time. No allergies to any antibiotics that she knows of. Past Medical History - Allergies and Home Meds Allergies/Adverse Reactions: Allergies meperidine HCl [From Demerol] Allergy (Severe, Verified 06/05/18 01:16) Itching latex Allergy (Verified 06/05/18 01:16) Rash swelling, itching strawberry Allergy (Verified 06/05/18 01:16) Rash Primary Care Physician: Care Physician,No Primary [Primary Care Provider] - Past Medical History: None Surgical History: - - D&C Lives: Spouse/ Significant Other Smoking Status: Current every day smoker Review of Systems General: Denies: Chills, Fever Gastrointestinal: Denies: Abdominal pain, Nausea, Vomiting Genitourinary: Reports: Dysuria, Hematuria, Frequency Musculoskeletal: Denies: Back pain Physical Exam Vital Signs/Narrative: Vital Signs Temp Pulse Resp BP Pulse Ox 06/05/18 01:18 98.8 F 72 15 112/61 97 Inital Vital Signs reviewed: Yes General: Well nourished, Well developed, No Acute Distress Head: Normocephalic, Atraumatic Abdomen: Soft, Nontender, Nondistended, Normal bowel sounds Back: Nontender, Normal Inspection. Negative for: CVA tenderness Skin: Normal color, No rash Neurological: Alert, Oriented x3, Cranial nerves II-XII grossly intact, Normal Strength, Normal Sensation Psychological: Normal affect, Normal Mood Diagnostic/Tx/Re-eval Laboratory Results 06/05/18 06/05/18 01:40 01:40 Urine Color Red Urine Clarity Turbid Urine pH 6.5 Ur Specific [place] 1.020 Urine Protein 500 H Urine Glucose (UA) Normal Urine Ketones 5 H Urine Occult Blood 250 H Urine Nitrite Negative Urine Bilirubin Negative Urine Urobilinogen 1 H Ur Leukocyte Esterase 500 H Urine RBC > 100 SEEN Urine WBC 50-100 SEEN Ur Squamous Epith Cells 0 SEEN Urine Bacteria 2+ Urine Mucus 0 SEEN Urine Test Negative - Medical Decision Making Urinalysis is grossly bloody and consistent with infection. I think it is reasonable to treat her as an uncomplicated hemorrhagic cystitis, culture not likely to be necessary. We will place her on Bactrim. We did a bedside bladder scan, it was basically 0, reassuring that she is not retaining at this time. Discussed reasons to return to the ER. ED Disposition - Plan for ED Patient: Disposition: Home or Assisted Living Diagnosis: Hemorrhagic cystitis Instructions: ED UTI Cystitis Female Prescriptions: Sulfamethoxazole/Trimethoprim [Bactrim Ds Tablet] 1 each PO BID #10 tablet Referrals: Dyana Reis [NON-STAFF] - 3-5 Days if not improving
[2018-06-05 01:48] LABS: Mucous, Urine 0 SEEN /hpf (<or=2+); Squamous Epithelial Cells - UA 0 SEEN /hpf (5-10)
[2018-06-05 01:57] LABS: Color, Urine Red (Yellow); Glucose, Dipstick Normal (Normal); Ketone-Dipstick 5 mg/dl (Negative); Leukocyte Esterase-Dipstick 500 /ul (Negative); Nitrite-Dipstick Negative (Negative); Occult Blood-Urine 250 /ul (Negative); Protein-Dipstick 500 mg/dl (Negative); Urine Bilirubin Dipstick Negative (Negative); Urine Clarity Turbid (Clear); Urine Urobilinogen 1 mg/dl (Normal); Urine pH 6.5 (5.0 - 8.0)
[2018-06-05 01:59] LABS: Red Blood Cells-Urine > 100 SEEN /hpf (0-5); White Blood Cells 50-100 SEEN /hpf (0-5)
[2018-06-05 02:00] LABS: Bacteria 2+ /hpf (None Seen)
[2018-06-05 02:02] LABS: Internal QC Validated? YES +Cl - CLEAR BKGD; Pregnancy, Urine Negative Negative
[2018-06-05] MEDS: Smz/Tmp Ds Tablet 1 TABLET PO (02:20)
[2018-06-05 02:25] VITALS: BP 110/60; PULSE 71; RESP 18; O2SAT 96
== END 2018-06-05 02:25 | disposition home or self-care (01) ==
PROVIDERS: Emergency Provider Emergency Medicine
DX: N30.91 Cystitis, unspecified with hematuria (principal); F17.200 Nicotine dependence, unspecified, uncomplicated; Z87.440 Personal history of urinary (tract) infections
CPT/HCPCS: 81001; 81025; 99283

== ENCOUNTER → 2018-11-09 09:29 | Outpatient (CLI) | payer MEDICAID, SELFPAY ==
--- NOTE | 2018-11-09 09:38 | RAD_ITS ---
STUDY: AIR-CONTRAST UPPER GI SERIES AND SMALL BOWEL FOLLOW-THROUGH EXAMINATION. REASON FOR EXAM: Female, 28 years old. Abdominal cramping with nausea and diarrhea. Weight loss. FLUOROSCOPY TIME (if supplied): (1:48) minutes/seconds. 16 images were obtained. TECHNIQUE: The patient ingested barium. Multiple images of the esophagus, stomach and duodenum were obtained. Following this, a small bowel follow-through examination was performed. COMPARISON: None. FINDINGS: The esophagus is unremarkable. There is no evidence of esophageal obstruction. No mass lesion is seen. No evidence of gastroesophageal reflux. The stomach and duodenum are unremarkable. There is no evidence of ulceration. No mass lesion is present. A small bowel follow-through examination was then obtained. The small bowel transit is normal. There is no evidence of intrinsic or extrinsic small bowel disease. RAD/Upper GI/w Small Bowel IMPRESSION: Unremarkable air-contrast upper GI series and small bowel follow-through examination. Electronically Signed: Don Martinez, at 9:33 EDT , Service support ,
== END ==
PROVIDERS: Referring Provider Nurse Practitioner Family; Visit Provider Nurse Practitioner Family
DX: R10.9 Unspecified abdominal pain (principal); R63.4 Abnormal weight loss
CPT/HCPCS: 74249

== ENCOUNTER → 2020-07-14 08:42 | Outpatient (CLI) | payer MEDICAID, SELFPAY ==
--- NOTE | 2020-07-14 08:45 | BI_ITS ---
MAMMOGRAPHY - BILATERAL DIAGNOSTIC REASON FOR EXAM: Female, 30 years old. Bilateral breast pain. History of prior right nipple discharge. PERTINENT HISTORY: Non-contributory. TECHNIQUE: Digital bilateral breast harry (3D mammographic acquisition) in the CC and MLO projections. 2-D mediolateral oblique (MLO) and craniocaudad (CC) views of both breasts were obtained. CAD: Full Field Digital Mammography with Computer Added Detection was performed. COMPARISON: None. Baseline examination. FINDINGS: Breast Composition: The breasts are extremely dense, which lowers the sensitivity of mammography. There are no dominant masses or suspicious calcifications. No other significant abnormalities are identified. BI/DIAG MAMM W/CAD, BILAT IMPRESSION: Negative diagnostic mammogram. With the patient''s history of breast pain, correlation with ultrasound is recommended. ASSESSMENT CATEGORY: BIRADS Category 0: Incomplete. Need additional imaging evaluation. A letter regarding these results will be sent to the patient by the facility within 30 days. Approximately 10% of breast cancers are not detected by mammography. A normal mammogram should not delay biopsy of a clinically suspicious abnormality. Electronically Signed: Don Martinez MD at 10:02 EDT , Service support ,
--- NOTE | 2020-07-14 08:45 | US_ITS ---
STUDY: ULTRASOUND BREAST - RIGHT REASON FOR EXAM: Female, 30 years old. Pain in the upper outer quadrant of the right breast. Pea-sized palpable lump in the axillary region of the breast. History of breast discharge. TECHNIQUE: Axial and longitudinal images of the RIGHT breast were performed with a high resolution ultrasound transducer. # OF IMAGES: 75 COMPARISON: Comparison is made with prior mammogram done earlier in the day. FINDINGS: RIGHT Breast: The upper outer quadrant of the right breast as well as the retroareolar region of the right breast was examined by ultrasound. Small lymph nodes are seen in the axillary region of the right breast. The larger measures 1.4 cm x 0.8 cm x 0.4 cm. US/Breast Limited Unilateral IMPRESSION: There are 2 small lymph nodes in the right axilla. ASSESSMENT CATEGORY: BIRADS Category 2: Benign. A letter regarding these results will be sent to the patient by the facility within 30 days. Electronically Signed: Don Martinez MD at 15:29 EDT , Service support ,
== END ==
PROVIDERS: Referring Provider Student in an Organized Health Care Education/Training Program; Visit Provider Student in an Organized Health Care Education/Training Program
DX: N64.4 Mastodynia (principal)
CPT/HCPCS: 76642; 77062; 77066; G0279

== ENCOUNTER → 2020-08-04 16:26 | Outpatient (CLI) | payer MEDICAID, SELFPAY ==
[2020-07-17 10:07] VITALS: BMI 21.9
[2020-08-04 18:46] LABS: Estradiol 78.8 pg/mL; Follicle Stimulating Hormone 8.4 mIU/mL; Luteinizing Hormone 27.2 mIU/mL; Prolactin 7.6 ng/mL; T4 Free Direct 1.09 ng/dL (0.76-1.46); Thyroid Stim Hormone (TSH) 0.69 uIU/mL (0.358-3.74)
[2020-08-10 16:57] LABS: HPV APTIMA, High Risk Negative (Negative)
== END ==
PROVIDERS: Visit Provider Student in an Organized Health Care Education/Training Program
DX: N92.6 Irregular menstruation, unspecified (principal); Z12.4 Encounter for screening for malignant neoplasm of cervix
CPT/HCPCS: 36415; 82670; 83001; 83002; 84146; 84439; 84443; 87624; 88175; G0145

== ENCOUNTER 2020-09-25 07:53 | Day surgery (SDC) | payer MEDICAID, SELFPAY ==
[2020-07-17 10:07] VITALS: BMI 21.9
[2020-09-24 17:25] LABS: Hematocrit 40.8 % (37-47); Hemoglobin 13.2 g/dL (12.0-15.0); Mean Corp Hgb Conc 32.4 g/dL (32-36); Mean Corpuscular Hgb 30.5 pg (27.0-32.0); Mean Corpuscular Volume 94.2 fL (81-99); Mean Platelet Vol. 9.7 fl (6.2-12.0); Platelet Count 286 K/mm3 (150-450); RBC Distribution Width SD 45.2 fl (35.1-43.9); Red Blood Count 4.33 M/mm3 (4.2-5.4); White Blood Count 7.8 K/mm3 (4.4-11.0)
--- NOTE | 2020-09-24 18:23 | PCM.HP.BLA ---
History and Physical Date of Admission: 09/25/20 HISTORY OF PRESENT ILLNESS: On 09/24/2020, Lupe Campbell, a 30 year old female 4 0 1 0 4, presented for: hysteroscopy dilation and curettage, alexandra ablation for heavy irregular menses. MEDICAL HISTORY: 1. Abnormal uterine bleeding 2. Asthma ALLERGIES: Latex, Rash, itching, strawberries, Rash, Demoral, Itching all over, Demerol, Itching, non-specific, Latex, Rash, [place] and Rash MEDICATIONS HISTORY: 1. albuterol sulfate 0.63 mg/3 mL solution for nebulization, as directed SURGICAL HISTORY: 1. 07/10/2017 and Tubal Lissette Fernandez M.D. 2. 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 10/15/07 Primary C/S for Distress Dr Fernandez/Dr Juárez 4. 02/14/2010 Repeat C/S Dr. Moni Juárez labor, 38 wks. 5. 01/21/2014 LEEP Lissette Fernandez M.D. 6. 07/09/2013 suction D Lissette Fernandez M.D. 7. 11/06/2014 Lissette Fernandez M.D. MENSTRUAL HISTORY: LMP Known?- DefiniteAmount/Duration - 7-14 days, Regularity - bleeds between periods, LMP - 09/17/20, Age Onset Menarche - 12 PAST PREGNANCIES: Total Pregnancies - 5; Full Term Pregnancies - 4; Premature - 0; Abortions, Induced - 0; Abortions, Spontaneous - 1; Ectopics - 0; Multiple Births - 0; Living Children - 4 FAMILY HISTORY: Father - Ischemic heart disease; Mother - Ischemic heart disease; MaternalGrandparent - FH: Cancer of colon; MaternalGrandparent - FH: Cancer; SOCIAL HISTORY: Alcohol Use - RARELY Smoking - 1/2 PPD, ATQ! Drugs - denies REVIEW OF SYSTEMS: GENERAL - Denies fever, or chills SKIN - Denies skin changes EYES - Denies visual changes EARS - Denies difficulty hearing NOSE - Denies nasal congestion or bleeding MOUTH - Denies sore throat or difficulty swallowing NECK - Denies pain or swelling RESPIRATORY - Denies shortness of breath or wheezing CARDIOVASCULAR - Denies palpitations or chest pain GASTROINTESTINAL - Denies nausea, vomiting, diarrhea, constipation GENITOURINARY - Irregular bleeding MUSCULOSKELETAL - Denies joint or muscle pain NEUROLOGICAL - Denies localized numbness or weakness PSYCHIATRIC - Denies depression or anxiety ENDOCRINE - Denies heat or cold intolerance, weight loss or gain HEMATO-IMMUNOLOGIC - Denies excesive bleeding with cuts BP- 104/60 Sitting, Right arm, regular cuff Weight- 120.00 lbs Height- 63.00 inch BMI:21.30 CONSTITUTIONAL - NAD, well nourished, and well developed SKIN - No rash, lesions, or ulcers HEENT - Normocephalic, PERRLA, EOMI NECK - No nodes, no nuchal rigidity and thyroid normal size and texture LYMPH NODES - Palpation of lymph nodes in neck and groins within normal limits LUNGS - CTA x2 without wheezes, crackles or rales CARDIAC - Regular rate and rhythm without rubs, murmurs, or gallops ABDOMEN - Without hepatosplenomegaly, distention, masses, rebound, or guarding; normal bowel sounds; no hernias EXTREMITIES - No edema or calf tenderness NEUROLOGICAL - Cranial nerves II-XII grossly intact PSYCHIATRIC - A and O to time, place, person, mood and affect ASSESSMENT: PLAN BY DIAGNOSIS: 1. Excessive And Frequent Menstruation With Regular Cycle Heavy menses for 2 weeks at a time about every 2 weeks. Planned for hysteroscopy, dilation and curettage, alexandra ablation. Risks/benefits/alternatives discussed. Risks include, but are not limited to: risk of bleeding to the point of transfusion, infection, injury to surrounding tissue (bowel/bladder),uterrine perforation, VTE, ICU admission. Pt aware, consent signed.
[2020-09-25] VITALS (10 sets, daily range): BP systolic 102–121; BP diastolic 62–83; PULSE 62–79; RESP 16–24; TEMP 36.1–36.6; O2SAT 93–99; BMI 21.7
[2020-09-25] MEDS: Lactated Ringers 1,000 ML 100 ML IV (08:38)
--- NOTE | 2020-09-25 09:25 | EMB_PTH ---
PATIENT: MARCELL BABCOCK LOC: [facility] [place] U#:[id number] AGE/SX: 30/F ROOM: RE09/25/[address]: Dr. Brisa Cheng, : 1990 BED: DIS: 09/25/2020 SPEC #: [id number] RECD: 09/25/20 10:35 STATUS: DESTINEE DOMENICA #: [id number] ANETTE: 09/25/20 09:[address]: Brisa Cheng DEPT: SURGICAL PATHOLOGY RECD BY: Barbi Claros ENTERED: 09/25/20 11:02 SP TYPE: ENDOM BX/C HARJINDER DR: No Primary Care Phys Tissues: Endometrium, NOS Procedures: Surgery Specimen Level IV HEADER OPERATION: Hysteroscopy, D & C Crystal PRE-OP DIAGNOSIS: Excessive and frequent menstruation with regular cycle TISSUE SUBMITTED: Endometrial curettings MICROSCOPIC DIAGNOSIS Endometrium, curettings: Mildly disordered proliferative endometrium with focal glandular breakdown. AM:sherie 09/28/2020 MICROSCOPIC DESCRIPTION Slides are reviewed. GROSS DESCRIPTION Received in fixative is one container labeled with the patient's name and designated endometrial curettings. The specimen consists of multiple irregular fragments of nieto-pink soft tissue that in aggregate measure 3 x 2 x 0.2 cm. The specimen is totally submitted in one cassette. / SJ:sherie 09/25/20 TC:5 CPT: 17891
--- NOTE | 2020-09-25 09:26 | OP.PCM_ITS ---
Report of Operation Date of Procedure: 09/25/20 Pre-Operative Diagnosis: Abnormal uterine bleeding, menorrhagia Post-Operative Diagnosis: Abnormal uterine bleeding, menorrhagia Surgery/Procedure Performed:: Hysteroscopy, dilation and curettage, Crystal ablation Description of Surgical Findings:: Normal-appearing external genitalia. Moderate uterine descensus. Uterine cavity measuring 4.5 cm. Endometrial cavity with fluffy tissue, no polyps or fibroids. Type of Anesthesia: MAC Specimen's removed: Endometrial curettings Estimated Blood Loss (mL): 5 cc Fluids Replaced: 600 cc Description of Procedure: Indications, risk/benefits: 30-year-old female with abnormal uterine bleeding and menorrhagia plan for hysteroscopy, dilation and curettage, endometrial ablation. All risk, benefits, alternatives were discussed with the patient. Risks include but are not limited to: Risk of bleed ing twin transfusion, infection, injury to surrounding tissue including bowel or bladder or uterine perforation, VTE, ICU admission patient were consented. Procedure: Patient taken to the operating room MAC anesthesia induced. Patient placed in the dorsal lithotomy position and prepped and draped in the usual sterile fashion. Bladder drained 10 cc clear urine. Weighted speculum placed in poste rior vagina and Dobson retractor used to visualize the cervix which was grasped with single-tooth tenaculum. Cervix sequentially dilated. Hysteroscope placed through the cervix and visualization of the entire endometrial cavity was completed with findings as above. Uterine cavity length measuring 4.5 cm. Hysteroscope removed. Curettage completed in a 360 degree manner. Crystal device opened and deployed. Passed cavity assessments. Ablation completed. Cavity reassessed with adequate ablation noted. No ablation of cervix. Tenaculum removed with some cervical tearing and bleeding noticed. Repaired with 1 [id number] stitch, hemostatic. Retractors removed. At the end of the procedure all needle, lap, sponge counts were correct x3. Complications None
--- NOTE | 2020-09-25 09:26 | PCM.DC ---
Discharge Instructions Diet Discharge Diet: No restrictions Activity Discharge Activity: Return to Normal Activity May resume sexual activity in: 1-2 weeks Lifting Restrictions: None Dressing / Incision Call your doctor if you observe: Fever of 101 or Higher, Using more than 1 pad per hour, Shortness of breath, Dizziness, Swelling in the ankles and Chest pain Cleanse incision/area with: Soap & Water Follow Up Care Please Follow Up With: Brisa Cheng DO When: 2 weeks Test Results: Test results from this visit will be discussed in further detail at your follow-up appointment, if applicable. Discharge Plan Admission Primary Reason for Your Visit: Ablation Attending Provider: Brisa Cheng Primary Care Provider: Care Physician,Deanne Primary Discharge Orders/Prescriptions Prescriptions: New hydrocodone-acetaminophen 5-325 mg Tablet 1 tab PO Q6H PRN PRN (Reason: pain (scale score 7-10)) 2 Days Qty: 3 RF: 0 Continued albuterol 90 mcg/actuation aerosol inhaler 90 mcg/actuation aerosol 90 mcg INHALATION DAILY PRN PRN (Reason: Wheezing) RF: 0 Referrals / Follow Up: Care Physician,No Primary [Primary Care Provider] - Disposition Disposition (needs filled in before D/C Order can be placed): Home, Self Care
[2020-09-25] MEDS: HYDROcodone Bitartrate/Apap 5/325 Tablet PO (11:22)
== END 2020-09-25 12:54 | disposition home or self-care (01) ==
LOC: SDC 07:53 → AC 07:54
PROVIDERS: Referring Provider Student in an Organized Health Care Education/Training Program; Visit Provider Student in an Organized Health Care Education/Training Program
PROC: 0U5B8ZZ Destruction of Endometrium, Via Natural or Artificial Opening Endoscopic (ICD-10-PCS; CPT 58558; principal; 2020-09-25 09:10)
DX: N92.0 Excessive and frequent menstruation with regular cycle (principal); N81.4 Uterovaginal prolapse, unspecified; J45.909 Unspecified asthma, uncomplicated; F17.210 Nicotine dependence, cigarettes, uncomplicated; Q67.6 Pectus excavatum; Z98.1 Arthrodesis status; Z98.51 Tubal ligation status
CPT/HCPCS: 00952; 58563; 85027; 86850; 86900; 86901; 88305; J7120; J2405

== ENCOUNTER → 2020-09-29 13:51 | Outpatient (CLI) | payer MEDICAID, SELFPAY ==
[2020-09-25 08:23] VITALS: BMI 21.7
== END ==
PROVIDERS: Visit Provider Student in an Organized Health Care Education/Training Program
DX: R30.0 Dysuria (principal)
CPT/HCPCS: 87077; 87086; 87088

== ENCOUNTER → 2020-10-01 14:03 | Outpatient (CLI) | payer MEDICAID, SELFPAY ==
[2020-09-25 08:23] VITALS: BMI 21.7
[2020-10-01 14:20] LABS: Absolute Lymphocyte Count 1.91 X10^3/uL (0.83-4.51); Absolute Neutrophil Count 7.6 X10^3/uL (2.0-7.7); Basophil# 0.07 X10^3/uL; Basophil% 0.7 % (0-1); Eosinophil# 0.14 X10^3/uL; Eosinophils% 1.3 % (0-5); Hematocrit 43.6 % (37-47); Hemoglobin 14.4 g/dL (12.0-15.0); Lymphocyte # 1.91 X10^3/ul (0.83-4.51); Lymphocyte % 18.1 % (19-41); Mean Corpuscular Hgb 30.6 pg (27.0-32.0); Mean Corpuscular Volume 92.6 fL (81-99); Mean Platelet Vol. 9.7 fl (6.2-12.0); Monocyte# 0.76 X10^3/uL; Monocyte% 7.2 % (0-10); NRBC Flagged by Analyzer 0 % (0-5); Neutrophil # 7.62 X10^3/uL (2.7-7.7); Neutrophil % 72.3 % (47-70); Platelet Count 313 K/mm3 (150-450); RBC Distribution Width CV 12.5 % (11.6-14.6); RBC Distribution Width SD 42.7 fl (35.1-43.9); Red Blood Count 4.71 M/mm3 (4.2-5.4); White Blood Count 10.5 K/mm3 (4.4-11.0)
[2020-10-01 14:25] LABS: Anion Gap 9 (5-15); BUN 9 mg/dL (7-18); BUN/Creat Ratio 12.3 RATIO (10-20); Calcium,Total 9.4 mg/dL (8.5-10.1); Chloride 101 mmol/L (98-107); Creatinine, Serum 0.73 mg/dL (0.55-1.02); EST Glomerular Filtration Rate 98 mL/min (>60); Est Glom Filt Rate - Afr Amer 119 mL/min (>60); Glucose 94 mg/dL (74-106); Potassium 4.6 mmol/L (3.5-5.1); Sodium Level 137 mmol/L (136-145)
--- NOTE | 2020-10-01 16:50 | CT_ITS ---
STUDY: CT ABDOMEN AND PELVIS WITH CONTRAST REASON FOR EXAM: Female, 30 years old. POST OP PAIN FEVER RADIATION DOSAGE (If Supplied By Facility): CTDIvol = ( 9.80 ) mGy, DLP = ( 305.99 ) mGycm TECHNIQUE: Transaxial images were obtained from the dome of the diaphragm to the symphysis pubis with oral contrast. Oral and amp; IV Gastrografin and amp; 100mL Isovue-300 was administered. Sagittal and coronal images were reconstructed. Individualized dose optimization techniques were used for this CT. COMPARISON: None. FINDINGS: The visualized lung bases are unremarkable. The visualized portions of the heart are within normal limits. Normal liver. The gallbladder is contracted. Normal spleen. Normal pancreas. Normal bilateral adrenal glands. Normal right kidney. Normal left kidney. Normal visualized stomach. Normal small intestine. Normal colon. There is non-visualization of the appendix. Normal abdominal aorta. Normal inferior vena cava. Normal retroperitoneum. Normal urinary bladder. Significant endometrial fluid which is likely postoperative but clinical correlation is recommended to exclude endometritis. 2 cm dominant follicle the left ovary. Normal abdominal wall. Bilateral pars defects of the L5 vertebra consistent with spondylolysis. 18 mm of anterolisthesis of L5 on S1 consistent with grade [address]/Abdomen/Pelvis WITH Contrast IMPRESSION: Endometrial fluid which is likely postoperative. Clinical correlation is recommended to exclude endometritis. Electronically Signed: Ramon Vega MD at 17:34 EDT Tel , Service support ,
[2020-10-08 03:07] LABS: Chlamydia By Nucleic Acid AMP Negative (Negative)
[2020-10-08 07:41] LABS: Gonococcus By Nucleic Acid AMP Negative (Negative)
== END ==
PROVIDERS: Referring Provider Obstetrics & Gynecology; Visit Provider Obstetrics & Gynecology
DX: R10.9 Unspecified abdominal pain (principal); R50.9 Fever, unspecified; Z98.890 Other specified postprocedural states
CPT/HCPCS: 74177; 80048; 85025; 87491; 87591; Q9967

== ENCOUNTER → 2020-10-07 11:32 | Outpatient (CLI) | payer MEDICAID, SELFPAY ==
[2020-09-25 08:23] VITALS: BMI 21.7
--- NOTE | 2020-10-07 11:00 | EMB_PTH ---
PATIENT: MARCELL BABCOCK LOC: [facility] U#:[id number] AGE/SX: 35/F ROOM: RE10/07/[address]: Dr. Susana Dao MD : 1990 BED: DIS: SPEC #: [id number] RECD: 10/07/20 12:00 STATUS: DESTINEE DOMENICA #: [id number] ANETTE: 10/07/20 11:[address]: Susana Ortez DEPT: SURGICAL PATHOLOGY RECD BY: Barbi Claros ENTERED: 10/08/20 07:35 SP TYPE: ENDOM BX/C HARJINDER DR: No Primary Care Phys Tissues: Endometrium, NOS Procedures: Surgery Specimen Level IV HEADER OPERATION: Endometrial biopsy PRE-OP DIAGNOSIS: Status post Crystal/D & C; pelvic pain, endometriosis TISSUE SUBMITTED: Endometrial biopsy MICROSCOPIC DIAGNOSIS Endometrium, biopsy: Fibrinoid material with acute inflammation. Fragments of benign smooth muscle tissue with focal tissue necrosis. Rare fragments of benign glandular and squamous epithelium. Abundant bacterial colonies. See comment. AM:sherie 10/09/2020 COMMENT Clinical correlation is suggested. MICROSCOPIC DESCRIPTION Slides are reviewed. GROSS DESCRIPTION Received in fixative is one container labeled with the patient's name and designated endometrial biopsy. The specimen consists of multiple irregular fragments of light nieto soft tissue that in aggregate measure 1.5 x 0.5 x 0.1 cm. The specimen is totally submitted in one cassette. / AM:sherie 10/08/20 TC:2 CPT: 37583
[2020-10-07 12:45] LABS: Absolute Lymphocyte Count 2.04 X10^3/uL (0.83-4.51); Basophil# 0.08 X10^3/uL; Basophil% 0.8 % (0-1); Eosinophil# 0.23 X10^3/uL; Eosinophils% 2.3 % (0-5); Hematocrit 45.4 % (37-47); Hemoglobin 14.8 g/dL (12.0-15.0); Lymphocyte # 2.04 X10^3/ul (0.83-4.51); Lymphocyte % 20.3 % (19-41); Mean Corp Hgb Conc 32.6 g/dL (32-36); Mean Corpuscular Hgb 30.7 pg (27.0-32.0); Mean Corpuscular Volume 94.2 fL (81-99); Mean Platelet Vol. 9.1 fl (6.2-12.0); Monocyte# 0.62 X10^3/uL; Monocyte% 6.2 % (0-10); NRBC Flagged by Analyzer 0 % (0-5); Neutrophil # 7.03 X10^3/uL (2.7-7.7); Neutrophil % 70.1 % (47-70); Platelet Count 398 K/mm3 (150-450); RBC Distribution Width CV 12.7 % (11.6-14.6); RBC Distribution Width SD 44.1 fl (35.1-43.9); Red Blood Count 4.82 M/mm3 (4.2-5.4)
[2020-10-07 13:03] LABS: AST(SGOT) 17 U/L (15-37); Alanine Aminotransfer ALT/SGPT 21 U/L (13-56); Albumin, Serum 3.8 g/dL (3.2-5.0); Alkaline Phosphatase 72 U/L (45-117); Anion Gap 4 (5-15); BUN 10 mg/dL (7-18); BUN/Creat Ratio 11.4 RATIO (10-20); Chloride 106 mmol/L (98-107); Creatinine, Serum 0.88 mg/dL (0.55-1.02); EST Glomerular Filtration Rate 79 mL/min (>60); Est Glom Filt Rate - Afr Amer 96 mL/min (>60); Globulin 3.9 g/dL (2.2-4.2); Glucose 80 mg/dL (74-106); Potassium 4.2 mmol/L (3.5-5.1); Protein, Total 7.7 g/dL (6.4-8.2); Sodium Level 137 mmol/L (136-145)
== END ==
PROVIDERS: Visit Provider Obstetrics & Gynecology
DX: R10.2 Pelvic and perineal pain (principal); N71.9 Inflammatory disease of uterus, unspecified
CPT/HCPCS: 36415; 80053; 85025; 87070; 87077; 87186; 87205; 88305

== ENCOUNTER 2022-01-30 15:05 | Emergency (ER) | payer MEDICAID, SELFPAY ==
[2022-01-30 15:06] VITALS: BP 110/64; PULSE 89; RESP 16; TEMP 37.2; O2SAT 100; BMI 21.7
--- NOTE | 2022-01-30 15:33 | EX.ED.DYSGE1 ---
HPI History of Present Illness Chief Complaint: Fever Narrative Narrative: Patient presents with 2 to 3-day history of fevers myalgias and some respiratory symptoms, no known sick contacts but she has an ST NA. The fevers have resolved, she overall feels better but she feels quite lightheaded when she stands up. She has no urinary symptoms, no abdominal pain. She denies rash. She has no neck pain or stiffness. No headache. No vision changes. [facility] Medical History (Updated 01/30/22 @ 15:[address] Rick Smart MD) Alcohol use Anxiety Chronic cough COPD (chronic obstructive pulmonary disease) History of irregular heartbeat History of tumor Pectus excavatum Physical exam, pre-employment Smoker Umbilical hernia Wears glasses Home Medications albuterol 90 mcg/actuation aerosol inhaler 90 mcg inhalation DAILY PRN PRN Wheezing 07/17/20 [History Last Taken Unknown] Allergy/AdvReac Type Severity Reaction Status Date / Time meperidine HCl [From Demerol] Allergy Severe Itching Verified 01/30/22 15:22 latex Allergy Rash Verified 01/30/22 15:22 strawberry Allergy Rash Verified 01/30/22 15:22 Family History Father CAD (coronary artery disease) [place] Heart disease Grandfather CAD (coronary artery disease) age 56 [place] Mother Asthma Surgical History H/O LEEP History of History of dilatation and curettage History of fusion of cervical spine Hx of tubal ligation [place] teeth extracted Social History (Updated 07/17/20 @ 10:[address] Saloni Silveira MD) Smoking Status: Current every day smoker tobacco type: cigarettes second hand exposure: Yes alcohol intake: never substance use type: does not use caffeine: Yes what type of physical activity do you participate in: none frequency: does not exercise seatbelt use: always ROS ROS ED ROS Narrative Past medical history: Reviewed Medications: Reviewed Social history: Noncontributory Review of systems: All systems negative except as indicated General: Fever that has resolved Eyes: No visual changes ENT: No current upper airway congestion, normal voice Neck: No neck pain Cardiovascular: No chest pain. She does feel lightheaded Respiratory: No shortness of breath or cough Gastrointestinal: No abdominal pain, nausea vomiting or diarrhea Genitourinary: No dysuria Musculoskeletal: She still has some myalgias Skin: No rash Neurological: No memory loss, confusion or any focal weakness Psych: No recent behavioral changes Hematologic: No easy bleeding or easy bruising EXAM Physical Exam Narrative Exam Narrative: Physical exam General: Patient appears comfortable in the bed. She does not appear in any distress Head: Normocephalic, Atraumatic Eyes: Conjunctiva not pale ENT: Slightly dry mucous membranes Neck: Supple, Nontender, No lymphadenopathy Cardiovascular: Regular rate, Regular rhythm Respiratory: No distress, CTA bilaterally Abdomen: Soft, Nontender, Nondistended Back: Nontender, Normal Inspection. Negative for: CVA tenderness Extremities: Nontender, No edema Skin: Normal color, No rash Neurological: Alert, Normal Strength, Normal Sensation Psychological: Normal affect Const Vital Signs: 01/30/22 15:06 01/30/22 15:21 Temperature 99 F Temperature Source Temporal Pulse Rate 89 Respiratory Rate 16 Respiratory Effort Normal Non-Labored Respiratory Pattern Normal Blood Pressure 110/64 Blood Pressure Mean 79 Pulse Ox 100 Oxygen Delivery Method Room Air MDM MDM MDM Narrative Medical decision making narrative: Patient has clear lungs, currently she does not have any evidence of an upper respiratory infection but her history is consistent with an upper respiratory infection or viral syndrome that is resolving. She is now dehydrated. I did orthostatics at the bedside by me and they were positive. Because of this I will give her IV fluids, I will check a COVID and influenza and she can check the results at home if they are not back before she leaves regardless she can be discharged after hydration. Discharge Plan Triage Chief Complaint: Fever ED Provider: Rick Smart Dx/Rx/DC Orders Clinical Impression: Acute viral syndrome, Myalgia, Acute dehydration Instructions: ED Dehydration (Adult), ED Viral Syndrome (Adult) Prescriptions: No Action albuterol 90 mcg/actuation aerosol inhaler 90 mcg/actuation aerosol 90 mcg INHALATION DAILY PRN PRN (Reason: Wheezing) Primary Care Provider: Care Physician,No Primary Referrals: Fely Lamb DO [Med Staff - [employer] [facility] [employer]] - 3-5 Days Care Physician,No Primary [Primary Care Provider] - Disposition Disposition: Home, Self Care
[2022-01-30] MEDS: 0.9% Normal Saline 1,000 ML 1000 ML IV (16:11)
[2022-01-30] MEDS: Ketorolac 15 MG/ML Vial IV (16:17)
[2022-01-30 16:54] VITALS: BP 89/42; PULSE 69; RESP 18; O2SAT 94
[2022-01-30 17:07] VITALS: BP 84/45; PULSE 62; RESP 18; O2SAT 98
== END 2022-01-30 17:32 | disposition home or self-care (01) ==
LOC: ED 15:45
PROVIDERS: Emergency Provider Emergency Medicine; Visit Provider Emergency Medicine
DX: B34.9 Viral infection, unspecified (principal); J44.9 Chronic obstructive pulmonary disease, unspecified; E86.0 Dehydration; M79.10 Myalgia, unspecified site; Z77.22 Contact with and (suspected) exposure to environmental tobacco smoke (acute) (chronic)
CPT/HCPCS: 87428; 96361; 96374; 99283; J7030; A4216

== ENCOUNTER 2022-04-13 10:28 | Emergency (ER) | payer MEDICAID, SELFPAY ==
[2022-04-13 10:29] VITALS: BP 121/74; PULSE 89; RESP 18; TEMP 36.6; O2SAT 95; BMI 21.9
[2022-04-13 10:30] VITALS: BP 193/84; PULSE 59; RESP 18; TEMP 36.6; O2SAT 95
--- NOTE | 2022-04-13 10:35 | EKG12_ITS ---
Test Reason : SOB Blood Pressure : / mmHG Vent. Rate : 064 BPM Atrial Rate : 064 BPM P-R Int : 166 ms QRS Dur : 078 ms QT Int : 392 ms P-R-T Axes : 067 087 064 degrees QTc Int : 404 ms Normal sinus rhythm with sinus arrhythmia Possible Left atrial enlargement Borderline ECG Confirmed by VICTOR MANUEL GARY, ANTONIA ([id number]), supervising editor news reel MG PARSONS ([id number]) on 04/18/2022 12:16:40 PM Referred By: Confirmed By:ANTONIA RUHS MD
--- NOTE | 2022-04-13 10:35 | ED.VIS.DYS ---
HPI History of Present Illness Chief Complaint: Shortness of Breath Detail of Chief Complaint: Shortness of breath and chest pain Informant: patient Onset/Context/Timing Onset: Yesterday Context: sudden and onset (First episode last evening) Timing: Intermittent and Lasts (Minutes) Quality: Positive for Dyspnea on exertion; Negative for Orthopnea, PND or Wheezing Current Severity: Mild Maximum Severity: Moderate Worsened by: - (Walking up incline) Relieved by: Nothing Associated Symptoms Negative for cough, rhinorrhea, post nasal drip, ear pain, fever, sore throat, subjective, chills, sweats, clear sputum, white sputum, yellow sputum, green sputum or other Chest Pain: Positive for Intermittent (1 to 3 minutes), Sharp and Pressure (Anterior right and left upper chest) Narrative Narrative: Patient is a 32-year-old female who attempted to see a position. She was instructed to come to the emergency room because of chief complaint of intermittent shortness of breath and chest pain that started last evening. She had several episodes that last 1 to 3 minutes. There are no exacerbating, precipitating or alleviating factors regards to chest pain. She states she has increased shortness of breath with walking up incline. She denies recent fever, chills night sweats. She denies ear pain, rhinorrhea, congestion, postnasal drainage sore throat. She denies change in voice. She denies cough. She denies pleuritic pain. She denies history of VTE. She is not on hormonal therapy. Patient denies recent surgery or travel. She denies leg pain, swelling discoloration. Patient does endorse nausea without vomiting or diarrhea. Denies black or maroon-colored stool. There is no history of trauma. PE Risk Factors: Negative for Cancer, OCP + Smoking + > 35, Prior DVT or PE, Recent immobilization, Recent surgery or Recent travel Prior similar symptoms: No Recent Illness/Hospitalization: No [facility] Medical History Alcohol use Anxiety Chronic cough COPD (chronic obstructive pulmonary disease) History of irregular heartbeat History of tumor Pectus excavatum Physical exam, pre-employment Smoker Umbilical hernia Wears glasses Home Medications albuterol 90 mcg/actuation aerosol inhaler 90 mcg inhalation DAILY PRN PRN Wheezing 07/17/20 [History Last Taken Unknown] doxycycline monohydrate 100 mg capsule 100 mg PO BID #14 CAPSULES 04/13/22 [Rx Last Taken Unknown] Allergy/AdvReac Type Severity Reaction Status Date / Time meperidine HCl [From Demerol] Allergy Severe Itching Verified 04/13/22 10:29 latex Allergy Rash Verified 04/13/22 10:29 strawberry Allergy Rash Verified 04/13/22 10:29 Family History Father CAD (coronary artery disease) [place] Heart disease Grandfather CAD (coronary artery disease) age 56 [place] Mother Asthma Surgical History H/O LEEP History of History of dilatation and curettage History of fusion of cervical spine Hx of tubal ligation [place] teeth extracted Social History Smoking Status: Current every day smoker tobacco type: cigarettes second hand exposure: Yes alcohol intake: never substance use type: does not use caffeine: Yes what type of physical activity do you participate in: none frequency: does not exercise seatbelt use: always ROS ROS ED Constitutional Constitutional ED: Denies chills, fever(s), sweats or weight loss Eyes Eyes: Denies blurry vision, change in vision or diplopia ENT ENT ED: Denies ear pain, rhinorrhea or sore throat Cardiovascular Cardiovascular: Reports chest pain; Denies orthopnea, palpitations, paroxysmal nocturnal dyspnea or racing heartbeat Respiratory/Chest Respiratory/Chest: Reports dyspnea and dyspnea on exertion; Denies cough, orthopnea, paroxysmal nocturnal dyspnea or sputum Gastrointestinal Gastrointestinal: Reports nausea; Denies abdominal pain, constipation, diarrhea, melena or vomiting Genitourinary Genitourinary ED: Denies dysuria, hematuria or urinary frequency Musculoskeletal Musculoskeletal: Denies arthralgias, back pain, myalgias or neck pain Neurologic Neurologic: Denies headache(s), paresthesias or weakness Endocrine Endocrinology: Denies cold intolerance or heat intolerance EXAM Physical Exam Const Vital Signs: 04/13/22 10:29 04/13/22 10:30 Temperature 97.8 F 97.9 F Temperature Source Temporal Temporal Pulse Rate 89 59 L Respiratory Rate 18 18 Blood Pressure 121/74 H 193/84 H Blood Pressure Mean 89 120 Pulse Ox 95 95 Oxygen Delivery Method Room Air Room Air Positive well nourished and well developed General Appearance ED: well developed and NAD; Negative for pallor HEENT Reports moist mucous membranes HEENT Narrative: Head is atraumatic normocephalic. Ears normal. Nares patent. There is no drainage. Uvula midline. No deviation of protrusion. No erythema or exudate the posterior pharynx. There is no incident dysphonia. Eyes PERRL and EOMs intact bilaterally General Eye ED: Negative for pale conjunctiva or scleral icterus Neck no lymphadenopathy, supple, no meningeal signs and no JVD Neck Narrative: Trachea is midline. There is no inspiratory stridor. Resp normal respiratory effort and clear to auscultation bilaterally Cardio regular rate, regular rhythm, S1 normal heart sound, S2 normal heart sound and no murmurs GI non-tender, non-distended and no masses Auscultation: normoactive bowel sounds Palpation: soft Back/Spine no CVA tenderness and normal to inspection Extremity Extremity Narrative: There is no asymmetry, swelling, discoloration, leg vein distention, palpable cords or tenderness along the distribution of the deep venous system. Neuro oriented x3, CN's II-XII intact bilaterally and no sensory deficits noted Malou Coma Scale: document GCS findings Spontaneous Obeys Commands Oriented 15 Sensorium / Orientation: alert Psych mental status grossly normal Skin no wounds and skin turgor normal General Skin Exam: Negative for jaundice or pallor Lesions: no lesions Rashes: no rashes MDM MDM MDM Narrative Medical decision making narrative: Patient with chest pain and shortness of breath. PE was considered however patient is PERC negative. EKG was obtained to determine if there is any evidence of dysrhythmia or findings suggest preexcitation syndrome. Chest x-ray to evaluate for any pulmonary causes i.e. pneumonia, pneumothorax. Will obtain CBC to evaluate for anemia. Patient has very atypical presentation and history and is not concerning or consistent with cardiac ischemia. Patient's chest x-ray reveals right middle lobe infiltrate. We will treat with doxycycline to cover atypical and typical organisms. She has no contraindication to doxycycline. Blood pressure is elevated. Since patient does not have history of hypertension and is asymptomatic and is only 1 reading we will have her follow-up with her provider for reassessment. There is no evidence of endorgan dysfunction. Lab Data Attestation: I reviewed the patient's lab results. Lab results narrative: CBC and basic metabolic panel are unremarkable. Labs: Laboratory Results - last 24 hr 04/13/22 04/13/22 10:45 10:45 WBC 9.9 RBC 4.71 Hgb 14.7 Hct 44.7 MCV 94.9 MCH 31.2 MCHC 32.9 RDW Std Deviation 47.9 H RDW Coeff of Jeane 13.6 Plt Count 297 MPV 9.2 Immature Gran % (Auto) 0.300 Neut % (Auto) 69.1 Lymph % (Auto) 21.2 [place] % (Auto) 6.8 Eos % (Auto) 1.9 Baso % (Auto) 0.7 Absolute Neuts (auto) 6.9 Absolute Lymphs (auto) 2.11 Nucleated RBC % 0 Sodium 139 Potassium 4.1 Chloride 110 H Carbon Dioxide 25.0 Anion Gap 4 L BUN 12 Creatinine 0.77 Estim Creat Clear Calc 82.19 Est GFR (MDRD) Af Amer 110 Est GFR (MDRD) Non-Af 91 BUN/Creatinine Ratio 15.5 Glucose 103 Calcium 9.1 Radiography Chest X-Ray - ED: 2 View and Read by ED Physician (2 view chest x-ray reveals right middle lobe infiltrate. There is air bronchograms or scarring in the right heart border. Cardiac silhouette appears slightly abnormal on the left. There is no comparison film. Perihilar regions unremarkable. Osseous structures are unremarkable. There is no much) Rhythm Strip Rhythm Strip: Sinus Rhythm Rate: 57 Ectopy: None EKG Initial EKG: Attestation: I personally reviewed and interpreted this EKG as follows: Interpretation: Sinus Rhythm (Normal sinus rhythm rate of 64. [place] intervals 106 6 ms. QS duration 70 ms. QT duration 392 ms. [place] is normal. There is slight respiratory variance which is a normal variant. There are no acute ischemic changes noted.) Prior: Unchanged (Dated December 07, 2016. The only difference is rate. The heart rate was 47 at that time.) Discharge Plan Triage Chief Complaint: Shortness of Breath ED Provider: Lb Reed Dx/Rx/DC Orders Clinical Impression: Right middle lobe pneumonia, Pectus excavatum, Bradycardia, sinus, BP (high blood pressure) Instructions: ED Pneumonia (Adult) Prescriptions: New doxycycline monohydrate 100 mg capsule 100 mg PO BID Qty: 14 0RF No Action albuterol 90 mcg/actuation aerosol inhaler 90 mcg/actuation aerosol 90 mcg INHALATION DAILY PRN PRN (Reason: Wheezing) Stand Alone Forms: ED Work / School Excuse Primary Care Provider: Care Physician,No Primary Referrals: Care Physician,No Primary [Primary Care Provider] - Activity Restrictions/Additional Instructions: 1. Follow-up with your provider, [facility], in 5 to 7 days if no improvement. 2. It is in your best interest to stop smoking 3. Return if you have increased shortness of breath, wheezing or unable to eat or drink anything. Disposition Disposition: Home, Self Care
[2022-04-13 10:52] LABS: Absolute Lymphocyte Count 2.11 X10^3/uL (0.83-4.51); Absolute Neutrophil Count 6.9 X10^3/uL (2.0-7.7); Basophil# 0.07 X10^3/uL; Basophil% 0.7 % (0-1); Eosinophil# 0.19 X10^3/uL; Eosinophils% 1.9 % (0-5); Hematocrit 44.7 % (37-47); Hemoglobin 14.7 g/dL (12.0-15.0); Lymphocyte # 2.11 X10^3/ul (0.83-4.51); Lymphocyte % 21.2 % (19-41); Mean Corp Hgb Conc 32.9 g/dL (32-36); Mean Corpuscular Hgb 31.2 pg (27.0-32.0); Mean Corpuscular Volume 94.9 fL (81-99); Mean Platelet Vol. 9.2 fl (6.2-12.0); Monocyte# 0.68 X10^3/uL; Monocyte% 6.8 % (0-10); NRBC Flagged by Analyzer 0 % (0-5); Neutrophil # 6.85 X10^3/uL (2.7-7.7); Neutrophil % 69.1 % (47-70); Platelet Count 297 K/mm3 (150-450); RBC Distribution Width CV 13.6 % (11.6-14.6); RBC Distribution Width SD 47.9 fl (35.1-43.9); Red Blood Count 4.71 M/mm3 (4.2-5.4); White Blood Count 9.9 K/mm3 (4.4-11.0)
[2022-04-13 11:04] LABS: Anion Gap 4 (5-15); BUN 12 mg/dL (7-18); BUN/Creat Ratio 15.5 RATIO (10-20); Calcium,Total 9.1 mg/dL (8.5-10.1); Chloride 110 mmol/L (98-107); Creatinine, Serum 0.77 mg/dL (0.55-1.02); EST Glomerular Filtration Rate 91 mL/min (>60); Est Glom Filt Rate - Afr Amer 110 mL/min (>60); Estimated Creatinine Clearance 82.19 ml/min; Glucose 103 mg/dL (74-106); Potassium 4.1 mmol/L (3.5-5.1); Sodium Level 139 mmol/L (136-145)
--- NOTE | 2022-04-13 11:15 | RAD_ITS ---
STUDY: X-RAY CHEST REASON FOR EXAM: Female, 32 years old. Fever and cough TECHNIQUE: PA and lateral views of the chest. COMPARISON: 2013 FINDINGS: EKG leads overlie the chest The lungs are clear and expanded. There is no demonstrated pleural abnormality. Normal size heart. Normal mediastinum and david. Normal visualized pulmonary arteries. Normal visualized aortic arch and descending thoracic aorta. Normal visualized thoracic spine. Normal visualized ribs, clavicles, and shoulders. There is no demonstrated abnormality of the visualized soft tissue structures of the upper abdomen. RAD/Chest PA and Lateral IMPRESSION: No acute pulmonary process, no interval change Electronically Signed: Reji Kang MD at 11:42 EST ,
[2022-04-13] MEDS: Doxycycline 100 MG CAPSULE PO (12:02)
[2022-04-13 12:05] VITALS: BP 90/78; PULSE 58; RESP 16; O2SAT 97
== END 2022-04-13 12:05 | disposition home or self-care (01) ==
PROVIDERS: Emergency Provider Emergency Medicine; Visit Provider Emergency Medicine
DX: J18.9 Pneumonia, unspecified organism (principal); J44.9 Chronic obstructive pulmonary disease, unspecified; Z77.22 Contact with and (suspected) exposure to environmental tobacco smoke (acute) (chronic); Z82.49 Family history of ischemic heart disease and other diseases of the circulatory system; R00.1 Bradycardia, unspecified; Q67.6 Pectus excavatum; R03.0 Elevated blood-pressure reading, without diagnosis of hypertension
CPT/HCPCS: 71046; 80048; 85025; 93005; 99284; A4216

== ENCOUNTER 2023-10-30 15:10 | Emergency (ER) | payer MEDICAID, SELFPAY ==
[2023-10-30 15:11] VITALS: BP 120/61; PULSE 67; RESP 12; TEMP 36.6; O2SAT 98; BMI 22.7
--- NOTE | 2023-10-30 15:20 | EDS_ITS ---
HPI History of Present Illness Chief Complaint: Flank Pain Detail of Chief Complaint: Intermittent left-sided flank pain Informant: patient Onset/Context/Timing Onset: Yesterday Context: Sudden Onset Timing: Intermittent Quality: Pressure to stabbing to squeezing Location: Left flank radiating anteriorly Current Severity: Mild Maximum Severity: Severe Worsened by: Nothing Relieved by: Nothing Associated Symptoms Associated Symptoms: Nausea when the pain is intense Narrative Narrative: Patient is a 33-year-old G4, P4 woman status post bilateral tubal ligation 6 years ago who presents with left flank pain that has been intermittent since yesterday. It varies in the quality of the pain. It is presently mild. When it is severe she complains of nausea without vomiting. She denies history of renal or ureterolithiasis. She does have history of ovarian cysts and required surgery May of this year. She states this pain is different. The pain does radiate anteriorly. She denies history of inflammatory bowel disorder. She denies history of hepatic disease or pancreatitis. She has no signs or symptoms of . She denies dysuria, frequency, urgency or hematuria. She is not noted any change in the color of her urine. She denies vaginal bleeding. Surgical history remarkable for x 4 and bilateral tubal ligation. Prior similar symptoms: No Recent Illness/Hospitalization: No PFSH [facility] Medical History Physical exam, pre-employment History of tumor Wears glasses Anxiety Alcohol use Smoker COPD (chronic obstructive pulmonary disease) Chronic cough History of irregular heartbeat Umbilical hernia Pectus excavatum Home Medications ?Medication ?Instructions ?Recorded ?Last Taken ?Type albuterol 90 mcg/actuation aerosol 90 mcg inhalation DAILY PRN PRN 07/17/20 Unknown History inhaler Wheezing doxycycline monohydrate 100 mg 100 mg PO BID #14 CAPSULES 04/13/22 Unknown Rx capsule naproxen 500 mg tablet 500 mg PO BID #14 tabs 10/30/23 Unknown Rx Allergy/AdvReac Type Severity Reaction Status Date / Time meperidine HCl (From Demerol) Allergy Severe Itching Verified 10/30/23 15:51 latex Allergy Rash Verified 10/30/23 15:51 strawberry Allergy Rash Verified 10/30/23 15:51 Family History Father CAD (coronary artery disease) [place] Heart disease Grandfather CAD (coronary artery disease) age 56 [place] Mother Asthma Surgical History [place] teeth extracted Hx of tubal ligation History of dilatation and curettage H/O LEEP History of History of fusion of cervical spine Social History Smoking Status: Current every day smoker tobacco type: cigarettes second hand exposure: Yes alcohol intake: never substance use type: does not use caffeine: Yes what type of physical activity do you participate in: none frequency: does not exercise seatbelt use: always ROS ROS ED Constitutional Constitutional ED: Denies chills, fever(s), subjective, sweats or weight loss Eyes Eyes: Denies blurry vision or change in vision ENT ENT ED: Denies ear pain, rhinorrhea or sore throat Cardiovascular Cardiovascular: Denies chest pain, orthopnea or palpitations Respiratory/Chest Respiratory/Chest: Denies cough, dyspnea, dyspnea on exertion or orthopnea Gastrointestinal Gastrointestinal: Reports nausea; Denies abdominal pain, diarrhea, melena or vom iting Genitourinary Genitourinary ED: Reports LMP (females 10-50) Details: Comment: (Does not recall); Denies dysuria, hematuria or urinary frequency Musculoskeletal Musculoskeletal: Reports other Details: Left flank pain ; Denies arthralgias, back pain, myalgias or neck pain Integumentary Denies rash Endocrine Endocrinology: Denies cold intolerance or heat intolerance Hematologic/Lymphatic Hematologic/Lymphatic: Reports systems reviewed and no addt'l complaints, except as documented EXAM Physical Exam Const Vital Signs: 10/30/23 15:11 Temperature 97.8 F Temperature Source Temporal Pulse Rate 67 Respiratory Rate 12 Blood Pressure 120/61 Blood Pressure Mean 80 Pulse Ox 98 Oxygen Delivery Method Room Air Positive well nourished and well developed General Appearance ED: well developed and NAD; Negative for pallor HEENT Reports moist mucous membranes HEENT Narrative: Head is atraumatic and normocephalic. Ears normal. Nares patent. Eyes PERRL and EOMs intact bilaterally General Eye ED: Negative for pale conjunctiva or scleral icterus Neck no lymphadenopathy, supple and no JVD Chest Wall inspection of chest normal and palpation of chest normal Resp normal respiratory effort and clear to auscultation bilaterally Cardio regular rate, regular rhythm, S1 normal heart sound, S2 normal heart sound and no murmurs GI non-distended and no masses; Negative for normal to inspection, nondistended, normoactive bowel sounds, non-tender or hepatosplenomegaly GI Narrative: There is tympany to percussion. There is tenderness in the suprapubic area. There is no guarding or peritoneal findings. Bowel sounds are slightly diminished. Palpation: soft and tender suprapubic; Negative for guarding, splenomegaly, mass or rebound tenderness present Back/Spine General Back: CVA tenderness left Extremity normal to inspection General Extremety ED: Negative for edema or tenderness General Extremity: Negative for edema Neuro oriented x3 and CN's II-XII intact bilaterally Sensorium / Orientation: alert Psych mental status grossly normal Skin no rashes or lesions noted, no wounds and skin turgor normal General Skin Exam: Negative for jaundice or pallor MDM MDM MDM Narrative Medical decision making narrative: Differential diagnosis would include obstructing ureteral stone, pyelonephritis, complicated urinary tract infection, pancreatitis since there is history of alcohol use. This may also represent abdominal pain of unknown etiology. Workup included a CBC, basic metabolic panel, lipase and UA. Patient was offered pain medicine, which she declined. Lab Data Attestation: I reviewed the patient's lab results. Lab results narrative: CBC is normal. Electrolyte panel is unremarkable. Urinalysis is normal. Lipase is normal. Labs: Laboratory Results - last 24 hr 10/30/23 10/30/23 15:35 15:50 WBC 9.2 RBC 4.28 Hgb 13.4 Hct 40.2 MCV 93.9 MCH 31.3 MCHC 33.3 RDW Std Deviation 43.7 RDW Coeff of Jeane 12.6 Plt Count 254 MPV 9.6 Immature Gran % (Auto) 0.100 Neut % (Auto) 59.3 Lymph % (Auto) 31.4 [place] % (Auto) 6.1 Eos % (Auto) 2.3 Baso % (Auto) 0.8 Absolute Neuts (auto) 5.4 Absolute Lymphs (auto) 2.88 Nucleated RBC % 0 Sodium 139 Potassium 3.7 Chloride 110 H Carbon Dioxide 26.0 Anion Gap 3 L BUN 9 Creatinine 0.71 Estim Creat Clear Calc 88.30 Est GFR (MDRD) Af Amer 120 Est GFR (MDRD) Non-Af 99 BUN/Creatinine Ratio 12.6 Glucose 95 Calcium 9.1 Lipase 29 Urine Color Yellow Urine Clarity Clear Urine pH 7.0 Ur Specific [place] 1.005 Urine Protein Negative Urine Glucose (UA) Normal Urine Ketones Negative Urine Occult Blood Negative Urine Nitrite Negative Urine Bilirubin Negative Urine Urobilinogen Normal Ur Leukocyte Esterase Negative Urine RBC 0 SEEN Urine WBC 0 SEEN Ur Squamous Epith Cells 0-5 SEEN Urine Bacteria 0 SEEN Urine Mucus 0 SEEN Treatment and Re-Evaluation :: Patient was informed that her workup was unremarkable. Since she has r eproducible pain and pain with movement suspect this is musculoskeletal Will treat with NSAID since there is no contraindication. Discharge Plan Triage Chief Complaint: Flank Pain ED Provider: Lb Reed Dx/Rx/DC Orders Clinical Impression: Dorsal back pain Instructions: ED Back Pain (Acute or Chronic) Prescriptions: New naproxen 500 mg tablet 500 mg PO BID Qty: 14 0RF No Action albuterol 90 mcg/actuation aerosol 90 mcg INHALATION DAILY PRN PRN (Reason: Wheezing) doxycycline monohydrate 100 mg capsule 100 mg PO BID Qty: 14 0RF Primary Care Provider: Care Physician,No Primary Referrals: Care Physician,No Primary [Primary Care Provider] - Doctor,Your [Non-Staff] - 1 Week if not improving Activity Restrictions/Additional Instructions: Apply ice to your left back area 6 times a day The name of your physician is on your insurance card issued to you by [facility] Print Language: Bahamian Disposition Disposition: Home, Self Care
[2023-10-30 15:46] LABS: Absolute Lymphocyte Count 2.88 X10^3/uL (0.83-4.51); Absolute Neutrophil Count 5.4 X10^3/uL (2.0-7.7); Basophil# 0.07 X10^3/uL; Basophil% 0.8 % (0-1); Eosinophil# 0.21 X10^3/uL; Eosinophils% 2.3 % (0-5); Hematocrit 40.2 % (37-47); Hemoglobin 13.4 g/dL (12.0-15.0); Lymphocyte # 2.88 X10^3/ul (0.83-4.51); Lymphocyte % 31.4 % (19-41); Mean Corp Hgb Conc 33.3 g/dL (32-36); Mean Corpuscular Hgb 31.3 pg (27.0-32.0); Mean Corpuscular Volume 93.9 fL (81-99); Mean Platelet Vol. 9.6 fl (6.2-12.0); Monocyte# 0.56 X10^3/uL; Monocyte% 6.1 % (0-10); NRBC Flagged by Analyzer 0 % (0-5); Neutrophil # 5.43 X10^3/uL (2.7-7.7); Neutrophil % 59.3 % (47-70); Platelet Count 254 K/mm3 (150-450); RBC Distribution Width CV 12.6 % (11.6-14.6); RBC Distribution Width SD 43.7 fl (35.1-43.9); Red Blood Count 4.28 M/mm3 (4.2-5.4); White Blood Count 9.2 K/mm3 (4.4-11.0)
[2023-10-30 16:11] LABS: Bacteria 0 SEEN /hpf (None Seen); Mucous, Urine 0 SEEN /hpf (<or=2+); Red Blood Cells-Urine 0 SEEN /hpf (0-5); White Blood Cells 0 SEEN /hpf (0-5)
[2023-10-30 16:12] LABS: Anion Gap 3 (5-15); BUN 9 mg/dL (7-18); BUN/Creat Ratio 12.6 RATIO (10-20); Calcium,Total 9.1 mg/dL (8.5-10.1); Chloride 110 mmol/L (98-107); Creatinine, Serum 0.71 mg/dL (0.55-1.02); EST Glomerular Filtration Rate 99 mL/min (>60); Est Glom Filt Rate - Afr Amer 120 mL/min (>60); Glucose 95 mg/dL (74-106); Lipase 29 U/L (13-75); Potassium 3.7 mmol/L (3.5-5.1); Sodium Level 139 mmol/L (136-145)
[2023-10-30 16:13] LABS: Color, Urine Yellow (Yellow); Glucose, Dipstick Normal (Normal); Ketone-Dipstick Negative (Negative); Leukocyte Esterase-Dipstick Negative /ul (Negative); Nitrite-Dipstick Negative (Negative); Occult Blood-Urine Negative /ul (Negative); Protein-Dipstick Negative (Negative); Specific Gravity, Urine 1.005 (1.002-1.030); Urine Bilirubin Dipstick Negative (Negative); Urine Clarity Clear (Clear); Urine Urobilinogen Normal (Normal)
[2023-10-30 16:48] LABS: Squamous Epithelial Cells - UA 0-5 SEEN /hpf (5-10)
[2023-10-30 17:11] VITALS: BP 119/78; PULSE 61; RESP 16; O2SAT 96
[2023-10-30 17:24] VITALS: BP 119/78; PULSE 61; RESP 16; TEMP 36.5; O2SAT 96
--- NOTE | 2023-10-30 17:32 | ED.RN ---
After Dr Reed advised pt she will be discharged she was very frustrated without more answers, I went over dispo and DC instructions with pt and she stated take my IV out, I am annoyed not having answers. I stated she is to follow up with her PCP but she stated, she does not have one because she doesn't trust doctors.
== END 2023-10-30 17:30 | disposition home or self-care (01) ==
PROVIDERS: Emergency Provider Emergency Medicine; Visit Provider Emergency Medicine
DX: M54.9 Dorsalgia, unspecified (principal); J44.9 Chronic obstructive pulmonary disease, unspecified; R10.9 Unspecified abdominal pain; Z77.22 Contact with and (suspected) exposure to environmental tobacco smoke (acute) (chronic); Z98.51 Tubal ligation status
CPT/HCPCS: 80048; 81001; 83690; 85025; 99283